=== PATIENT | male | born 1945 | race Caucasian/White ===

== ENCOUNTER 2019-07-05 06:48 | Day surgery (SDC) | payer OTHER ==
[2019-07-04 15:23] LABS: Absolute Lymphocytes (CBC) 2.8 K/uL (0.7-4.9); Basophils % 0.6 % (0-1.3); Lymphocytes % 33.1 % (15.3-44.8); MPV 8.7 fL (7.6-11.3); RBC Red Blood Cell Count 4.54 M/uL (4.33-5.43)
[2019-07-04 15:31] LABS: Protime INR 1.2
--- NOTE | 2019-07-04 15:56 | RAD REPORT ---
EXAM DESCRIPTION: Opal Macias (2 Views)07/04/2019 3:36 pm CLINICAL HISTORY: Preop for cardioversion COMPARISON: 2014 FINDINGS: The lungs appear clear of acute infiltrate. The heart is normal size IMPRESSION: No acute abnormalities displayed
[2019-07-05 07:20] LABS: Potassium 3.8 mmol/L (3.5-5.1)
[2019-07-05] MEDS ORDERED: FLUMAZENIL 0.1 MG/ML (5 mL VIAL) IV ONE (07:33)
[2019-07-05] MEDS ORDERED: MIDAZOLAM HCL 5 MG/5 ML INJ ONE (07:33)
[2019-07-05] MEDS ORDERED: ATROPINE SULF 1 MG/10 ML SYR IV ONE (07:33)
[2019-07-05] MEDS ORDERED: NA CHLORIDE 0.9% 500 ML ONE (07:33)
[2019-07-05 09:44] VITALS: TEMP 97.4
[2019-07-05 10:37] VITALS: BP 96/59; O2SAT 98
--- NOTE | 2019-07-05 11:36 | EKG ---
Test Date: 2019-07-05 Test Time: 08:17:32 [employer] T[employer] Water: PRICE MEASUREMENT RESULTS: Intervals: Rate: 51 RI: 226 QRSD: 86 QT: 518 QTc: 477 [place]: P: 79 RI: 226 QRS: 7 T: 51 INTERPRETIVE STATEMENTS: Sinus bradycardia with 1st degree AV block Otherwise normal ECG Compared to ECG 11/08/2014 06:58:48 First degree AV block now present Atrial flutter no longer present ST (T wave) deviation no longer present Electronically Signed On 07-05-19 11:35:47 CDT by Hiro Stafford
--- NOTE | 2019-07-05 18:26 | OP ---
Surgeon: Hiro Stafford MD Procedure: Mr. Nolasco had a direct current cardioversion. Indication: Atrial flutter, unsuccessful chemical cardioversion. Procedure In Detail: The patient was brought to the [facility] in a fasting state. He had bee n on Betapace 80 b.i.d. for several weeks, Xarelto for several months 20 mg once a day. He was sedat ed with Versed, 5 mg was given adequate level of sedation. Anterior-posterior paddles were applied o n his chest. A single shock of 70 joules was given. This resulted in changing him to sinus bradycar justin. Heart rate 55 beats per minute. Complications from the procedure none. KATEY/ERUM Voice ID: [id number] Report ID: [id number]
== END 2019-07-05 10:33 | disposition home or self-care (01) ==
LOC: CCL 06:48
PROVIDERS: ATTEND Internal Medicine
DX: I48.3 Typical atrial flutter (principal); I10 Essential (primary) hypertension; E78.5 Hyperlipidemia, unspecified; E11.9 Type 2 diabetes mellitus without complications; G81.90 Hemiplegia, unspecified affecting unspecified side; F03.90 Unspecified dementia, unspecified severity, without behavioral disturbance, psychotic disturbance, mood disturbance, and anxiety; M19.90 Unspecified osteoarthritis, unspecified site; F17.210 Nicotine dependence, cigarettes, uncomplicated; Z79.02 Long term (current) use of antithrombotics/antiplatelets; Z86.73 Personal history of transient ischemic attack (TIA), and cerebral infarction without residual deficits
CPT/HCPCS: 93005; 85025; 80048; 36415; 85610; 82962; 85730; 71046; 92960; J2250; J7040

== ENCOUNTER 2020-08-28 10:15 | Observation (INO) | payer OTHER ==
[2020-08-28 10:57] LABS: Absolute Lymphocytes (CBC) 2.5 K/uL (0.7-4.9); Basophils % 0.6 % (0-1.3); Hematocrit 42.3 % (39.6-49.0); Lymphocytes % 28.6 % (15.3-44.8); MPV 8.9 fL (7.6-11.3); RBC Red Blood Cell Count 4.63 M/uL (4.33-5.43)
[2020-08-28 11:08] LABS: Protime INR 1.2
[2020-08-28] MEDS ORDERED: NA CHLORIDE 0.9% 250 ML ONE (11:17)
[2020-08-28 11:19] LABS: ALT/SGPT 45 U/L (12-78); AST/SGOT 40 U/L (15-37); Albumin 3.3 g/dL (3.4-5.0); Alkaline Phosphatase 80 U/L (45-117); BUN Blood Urea Nitrogen 18 mg/dL (7-18); Bicarbonate 33 mmol/L (21-32); Bilirubin Direct 0.1 mg/dL (0-0.2); Bilirubin Total 0.5 mg/dL (0.2-1.0); Glucose Level 176 mg/dL (74-106); Magnesium 1.8 mg/dL (1.8-2.4); NT PRO-BNP 289 pg/mL (<125); Potassium 4.2 mmol/L (3.5-5.1); Protein, Total 7.1 g/dL (6.4-8.2); Sodium Level 143 mmol/L (136-145); Troponin (Emerg Dept Use Only) < 0.02 ng/mL (0.0-0.045)
--- NOTE | 2020-08-28 11:50 | RAD REPORT ---
EXAM DESCRIPTION: RAD - Chest Single View - 08/28/2020 10:52 am CLINICAL HISTORY: DYSPNEA, tachycardia COMPARISON: June 2019 TECHNIQUE: AP portable chest image was obtained 08/28/2020 10:52 am . FINDINGS: No focal lung parenchymal process. Interstitial pattern matches comparison. No failure or volume overload. Heart and vasculature are normal. No measurable pleural effusion and no pneumothorax . No acute bony abnormality seen. No acute aortic findings suspected. IMPRESSION: No acute cardiopulmonary process. No significant change from comparison study.
--- NOTE | 2020-08-28 12:02 | ER ---
Nurse's Notes [facility] Name: Dwight Nolasco Age: 75 yrs Sex: Male : 1945 Arrival Date: 08/28/2020 Time: 10:17 Bed 27 Private MD: Diagnosis: Atrial fibrillation and flutter-w/ RVR Presentation: 08/28 10:23 Chief complaint: Sent here by Dr. Sena (Cnc Lathe Programmer) for elevated heart rate. Spoke aa5 to nurse at [facility] where pt lives and nurse states pt tested positive for COVID-19 in May 2020, nurse denies nausea/vomiting/diarrhea. Nurse reports chronic cough and reports pt's baseline is unclear speech and A\T\O x 2. 10:23 Coronavirus screen: At this time, the client does not indicate any symptoms associated aa5 with coronavirus-19. Ebola Screen: Patient negative for fever greater than or equal to 101.5 degrees Fahrenheit, and additional compatible Ebola Virus Disease symptoms. Initial Sepsis Screen: Does the patient meet any 2 criteria? HR > 90 bpm. Does the patient have a suspected source of infection? No. Patient's initial sepsis screen is negative. Risk Assessment: Do you want to hurt yourself or someone else? Unable to obtain. Onset of symptoms was August 28, 2020. 10:23 Acuity: BEVERLY 2 aa5 10:23 Method Of Arrival: Wheelchair aa5 Triage Assessment: 10:30 General: Appears in no apparent distress. comfortable, Behavior is calm, cooperative, bp appropriate for age. Pain: Denies pain. EENT: No deficits noted. Neuro: No deficits noted. Cardiovascular: Rhythm is sinus tachycardia. Respiratory: No deficits noted. GI: No signs and/or symptoms were reported involving the gastrointestinal system. : No signs and/or symptoms were reported regarding the genitourinary system. Derm: No deficits noted. Musculoskeletal: No deficits noted. Historical: - Allergies: 10:23 No Known Allergies; aa5 - Home Meds: 12:17 amlodipine 5 mg tab 1 tab once daily [Active]; atorvastatin 80 mg oral tab 1 tab once aa5 daily [Active]; Betapace 40mg oral tab 2 times per day [Active]; Depakote 125 mg Oral TbEC 2 tabs 3 times per day [Active]; duloxetine 20 mg oral cpDR daily [Active]; fenofibrate 54 mg oral tab once daily [Active]; furosemide 40 mg oral tab once daily [Active]; gabapentin 800 mg oral tab 1 tab 3 times per day [Active]; glimepiride 2 mg Oral tab 1 tab once daily [Active]; guaifenesin 100 mg/5 mL Oral liqd evry 8 hrs PRN for cough [Active]; hydrocodone-acetaminophen 5-325 mg oral tab BID [Active]; lisinopril 20 mg Oral tab once daily [Active]; metformin 850 mg Oral tab 1 tab 2 times per day [Active]; Milk of Magnesia 400 mg/5 mL Oral susp 30 mL every 6hrs PRN for constipation [Active]; multivitamin oral oral [Active]; Nitrostat 0.4 mg SL subl [Active]; Xarelto 20 mg oral tab 1 tab once daily [Active]; - PMHx: 10:23 Type 2 Diabetes; Atrial Flutter; Hyperlipidemia; Hypertension; Depression; Dementia; aa5 dysphagia; CVA; osteoarthritis; Cognitive Communication Deficit; - Immunization history:: Adult Immunizations unknown. - Social history:: Smoking status: Patient reports the use of cigarette tobacco products, cigars. Screenin:30 Abuse screen: Denies threats or abuse. Denies injuries from another. Nutritional bp screening: No deficits noted. Tuberculosis screening: No symptoms or risk factors identified. Fall Risk None identified. Assessment: 10:30 General: SEE TRIAGE NOTE. bp 11:30 Reassessment: Patient appears in no apparent distress at this time. No changes from bp previously documented assessment. PT SLEEPING. 12:00 Reassessment: PT REMAINS AFIB/AFLUTTER. MENTATION AT BASELINE. bp 14:00 Reassessment: ADMIT INITIATED. AMIODARONE DRIP INFUSING. bp 16:30 General: Appears in no apparent distress. comfortable, Behavior is calm, cooperative. jd3 Pain: Denies pain. Neuro: Level of Consciousness is awake, alert, obeys commands, confused, Oriented to person, pt at baseline. Cardiovascular: Capillary refill < 3 seconds Patient's skin is warm and dry. Rhythm is irregular. Respiratory: Airway is patent Respiratory effort is even, unlabored, Respiratory pattern is regular, symmetrical, Denies cough, shortness of breath. GI: No signs and/or symptoms were reported involving the gastrointestinal system. : No signs and/or symptoms were reported regarding the genitourinary system. EENT: No signs and/or symptoms were reported regarding the EENT system. Derm: Skin is intact, Skin is dry, Skin is normal, Skin temperature is warm. Musculoskeletal: Circulation, motion, and sensation intact. Range of motion: intact in all extremities. 17:47 Reassessment: Patient appears in no apparent distress at this time. No changes from jd3 previously documented assessment. Patient and/or family updated on plan of care and expected duration. Pain level reassessed. Patient denies pain at this time. 18:46 Reassessment: Patient appears in no apparent distress at this time. No changes from jd3 previously documented assessment. Patient and/or family updated on plan of care and expected duration. Pain level reassessed. awaiting admission Patient denies pain at this time. 20:17 Reassessment: Patient appears in no apparent distress at this time. No changes from jd3 previously documented assessment. Patient and/or family updated on plan of care and expected duration. Pain level reassessed. Patient denies pain at this time. 21:10 Reassessment: Patient appears in no apparent distress at this time. No changes from jd3 previously documented assessment. Patient and/or family updated on plan of care and expected duration. Pain level reassessed. charting continued in [facility] Patient denies pain at this time. Pain: Denies pain. Neuro: Level of Consciousness is awake, alert, obeys commands, confused, Oriented to person. Cardiovascular: Denies chest pain, Capillary refill < 3 seconds Patient's skin is warm and dry. Rhythm is irregular. Respiratory: Airway is patent Respiratory effort is even, unlabored, Respiratory pattern is regular, symmetrical. 22:13 Reassessment: Tele pharmacy on phone to verify Lovenox ordered as 100 mg, pt weight of sg 87, pharmacy request primary nurse notify provider prior to authorization of dose per telepharmacy, Primary nurse Vanesa DENNIS notified pt is a ER hold. Vital Signs: 10:23 BP 115 / 89; Pulse 130; Resp 18 S; Temp 98.3(O); Pulse Ox 98% on R/A; aa5 11:30 BP 113 / 82; Pulse 130; Resp 18; Pulse Ox 94% ; bp 12:00 BP 122 / 95; Pulse 126; Resp 19; Pulse Ox 97% ; bp 13:00 BP 132 / 88; Pulse 122; Resp 21; Pulse Ox 96% ; bp 14:00 BP 132 / 100; Pulse 122; Resp 19; Pulse Ox 98% ; bp 14:55 Weight 87.09 kg; Height 6 ft. 0 in. (182.88 cm); em1 15:00 BP 128 / 93; Pulse 120; Resp 18; Pulse Ox 97% ; bp 16:29 BP 116 / 88; Pulse 106; Resp 17 S; Pulse Ox 96% on R/A; jd3 17:47 BP 127 / 93; Pulse 120; Resp 15 S; Pulse Ox 96% on R/A; jd3 18:47 BP 115 / 85; Pulse 114; Resp 19 S; Pulse Ox 95% on R/A; jd3 20:18 BP 116 / 80; Pulse 117; Resp 17 S; Pulse Ox 97% on R/A; jd3 14:55 Body Mass Index 26.04 (87.09 kg, 182.88 cm) em1 ED Course: 10:17 Patient arrived in ED. ag5 10:23 Arm band placed on Patient placed in an exam room, on a stretcher. aa5 10:27 George Raymond, RN is Primary Nurse. bp 10:30 Patient has correct armband on for positive identification. Bed in low position. Call bp light in reach. Side rails up X2. 10:32 Igor Hernandez MD is Attending Physician. kdr 10:45 Inserted saline lock: 20 gauge in right antecubital area, using aseptic technique. bp 10:46 Triage completed. aa5 10:51 XRAY Chest (1 view) In Process Unspecified. EDMS 12:00 Jeanne Gaytan MD is Hospitalizing Provider. kdr 14:00 Urine collected: clean catch specimen, clear. jl7 16:29 Primary Nurse role handed off by George Raymond, SONNY jd3 16:29 Andrew Dunlap RN is Primary Nurse. jd3 21:09 No provider procedures requiring assistance completed. Patient admitted, IV remains in jd3 place. Administered Medications: 11:06 Drug: NS 0.9% 250 ml Route: IV; Rate: bolus; Site: left antecubital; aa5 13:40 Follow up: IV Status: Completed infusion; IV Intake: 250ml bp 12:10 Drug: amiodarone 150 mg Volume: 100 ml; Route: IVPB; Infused Over: 10 mins; Site: left bp antecubital; 12:20 Follow up: IV Status: Completed infusion; IV Intake: 100ml bp 12:10 Drug: amiodarone 900 mg, D5W 500 ml Route: IVPB; Rate: 1 mg/min; Site: left antecubital;bp 18:10 Follow up: Response: No adverse reaction; Rate change 0.5 mg/min jd3 19:00 Follow up: Response: No adverse reaction; IV Status: Infusion continued upon admission jd3 Intake: 12:20 IV: 100ml; Total: 100ml. bp 13:40 IV: 250ml; Total: 350ml. bp Outcome: 12:01 Decision to Hospitalize by Provider. kdr 21:09 Admitted to ER Hold. Please see [facility] for further documentation. jd3 21:09 Condition: stable 21:09 Instructed on the need for admit. 08/29 17:57 Patient left the ED. iw Signatures: Dispatcher [employer] EDGiorgi Hwang, RN Igor Wright MD MD kdr Shwetha Huerta, RN Familia Martellic em1 Susy Walker RN RN vy5 Dana Campos RN RN [email or web address] Andrew Dunlap RN RN jd3 Peltier, Brian, RN RN Roberth Santana ag5
--- NOTE | 2020-08-28 12:02 | EDPHYS ---
Physician Documentation [facility] Name: Dwight Nolasco Age: 75 yrs Sex: Male : 1945 Arrival Date: 08/28/2020 Time: 10:17 Bed 27 Private MD: ED Physician Igor Hernandez HPI: 08/28 17:19 This 75 yrs old Male presents to ER via Wheelchair with complaints of kdr Increased Heart Rate. 17:19 The patient presents with a history of irregular heart beat. Context: The symptoms kdr occur at rest. Onset: The symptoms/episode began/occurred at an unknown time. Duration: The patient or guardian reports multiple episodes, that are intermittent, that wax and wane, with no pattern. Modifying factors: The symptoms are aggravated by nothing. The symptoms are alleviated by nothing. Associated signs and symptoms: The patient has no apparent associated signs or symptoms. Severity of symptoms: At their worst the symptoms were mild in the emergency department the symptoms are unchanged. It is unknown whether or not the patient has had similar symptoms in the past. The patient was sent from the button clamper office for eval of A-fib RVR in his office. It is not known why he was in the button clamper office as the patient is baseline A\T\Ox 2. Historical: - Allergies: 10:23 No Known Allergies; aa5 - Home Meds: 12:17 amlodipine 5 mg tab 1 tab once daily [Active]; atorvastatin 80 mg oral tab 1 tab once aa5 daily [Active]; Betapace 40mg oral tab 2 times per day [Active]; Depakote 125 mg Oral TbEC 2 tabs 3 times per day [Active]; duloxetine 20 mg oral cpDR daily [Active]; fenofibrate 54 mg oral tab once daily [Active]; furosemide 40 mg oral tab once daily [Active]; gabapentin 800 mg oral tab 1 tab 3 times per day [Active]; glimepiride 2 mg Oral tab 1 tab once daily [Active]; guaifenesin 100 mg/5 mL Oral liqd evry 8 hrs PRN for cough [Active]; hydrocodone-acetaminophen 5-325 mg oral tab BID [Active]; lisinopril 20 mg Oral tab once daily [Active]; metformin 850 mg Oral tab 1 tab 2 times per day [Active]; Milk of Magnesia 400 mg/5 mL Oral susp 30 mL every 6hrs PRN for constipation [Active]; multivitamin oral oral [Active]; Nitrostat 0.4 mg SL subl [Active]; Xarelto 20 mg oral tab 1 tab once daily [Active]; - PMHx: 10:23 Type 2 Diabetes; Atrial Flutter; Hyperlipidemia; Hypertension; Depression; Dementia; aa5 dysphagia; CVA; osteoarthritis; Cognitive Communication Deficit; - Immunization history:: Adult Immunizations unknown. - Social history:: Smoking status: Patient reports the use of cigarette tobacco products, cigars. ROS: 17:19 Constitutional: Negative for fever, chills, and weight loss, Eyes: Negative for injury, kdr pain, redness, and discharge, Neck: Negative for injury, pain, and swelling, Cardiovascular: Negative for chest pain, palpitations, and edema, Respiratory: Negative for shortness of breath, cough, wheezing, and pleuritic chest pain, Abdomen/GI: Negative for abdominal pain, nausea, vomiting, diarrhea, and constipation. 17:19 Unable to obtain ROS due to patient's speech is incomprehensible, Patient appears to have some baseline dementia or is otherwise a poor historian. Exam: 14:19 ECG was reviewed by the Attending Physician. kdr 17:19 Constitutional: This is a well developed, well nourished patient who is awake, alert, kdr and in no acute distress. Head/Face: Normocephalic, atraumatic. Eyes: Pupils equal round and reactive to light, extra-ocular motions intact. Lids and lashes normal. Conjunctiva and sclera are non-icteric and not injected. Cornea within normal limits. Periorbital areas with no swelling, redness, or edema. Neck: Trachea midline, no thyromegaly or masses palpated, and no cervical lymphadenopathy. Supple, full range of motion without nuchal rigidity, or vertebral point tenderness. No Meningismus. Chest/axilla: Normal chest wall appearance and motion. Nontender with no deformity. No lesions are appreciated. Respiratory: Lungs have equal breath sounds bilaterally, clear to auscultation and percussion. No rales, rhonchi or wheezes noted. No increased work of breathing, no retractions or nasal flaring. Abdomen/GI: Soft, non-tender, with normal bowel sounds. No distension or tympany. No guarding or rebound. No evidence of tenderness throughout. Back: No spinal tenderness. No costovertebral tenderness. Full range of motion. Skin: Warm, dry with normal turgor. Normal color with no rashes, no lesions, and no evidence of cellulitis. MS/ Extremity: Pulses equal, no cyanosis. Neurovascular intact. Full, normal range of motion. 17:19 Psych: Awake, alert, with orientation to person, place and time. Behavior, mood, and affect are within normal limits. 17:19 Cardiovascular: Rate: tachycardic, Rhythm: irregularly irregular, Pulses: no pulse deficits are appreciated, Heart sounds: normal, Edema: is not appreciated. 17:19 Neuro: Orientation: to person, place, Not oriented to time, situation, Mentation: slow to respond, Motor: is normal. Vital Signs: 10:23 BP 115 / 89; Pulse 130; Resp 18 S; Temp 98.3(O); Pulse Ox 98% on R/A; aa5 11:30 BP 113 / 82; Pulse 130; Resp 18; Pulse Ox 94% ; bp 12:00 BP 122 / 95; Pulse 126; Resp 19; Pulse Ox 97% ; bp 13:00 BP 132 / 88; Pulse 122; Resp 21; Pulse Ox 96% ; bp 14:00 BP 132 / 100; Pulse 122; Resp 19; Pulse Ox 98% ; bp 14:55 Weight 87.09 kg; Height 6 ft. 0 in. (182.88 cm); em1 15:00 BP 128 / 93; Pulse 120; Resp 18; Pulse Ox 97% ; bp 16:29 BP 116 / 88; Pulse 106; Resp 17 S; Pulse Ox 96% on R/A; jd3 17:47 BP 127 / 93; Pulse 120; Resp 15 S; Pulse Ox 96% on R/A; jd3 18:47 BP 115 / 85; Pulse 114; Resp 19 S; Pulse Ox 95% on R/A; jd3 20:18 BP 116 / 80; Pulse 117; Resp 17 S; Pulse Ox 97% on R/A; jd3 14:55 Body Mass Index 26.04 (87.09 kg, 182.88 cm) em1 MDM: 12:01 Patient medically screened. kdr 17:24 Data reviewed: vital signs, nurses notes, lab test result(s), radiologic studies. kdr Counseling: I had a detailed discussion with the patient and/or guardian regarding: the historical points, exam findings, and any diagnostic results supporting the discharge/admit diagnosis, lab results, radiology results. Physician consultation: Jermaine Sena MD regarding admission, consult, patient's condition, would like medications started, amiodarone . 08/28 10:32 Order name: Basic Metabolic Panel; Complete Time: 11:54 kdr 08/28 10:32 Order name: CBC with Diff; Complete Time: 11:54 kdr 08/28 10:32 Order name: LFT's; Complete Time: 11:54 kdr 08/28 10:32 Order name: Magnesium; Complete Time: 11:54 kdr 08/28 10:32 Order name: NT PRO-BNP; Complete Time: 11:54 kdr 08/28 10:32 Order name: PT-INR; Complete Time: 11:54 kdr 08/28 10:32 Order name: Troponin (emerg Dept Use Only); Complete Time: 11:54 kdr 08/28 12:35 Order name: CBC with Automated Diff EDMS 08/28 12:35 Order name: CBC with Automated Diff EDMS 08/28 12:35 Order name: Comprehensive Metabolic Panel EDNM 08/28 12:35 Order name: Comprehensive Metabolic Panel EDMS 08/28 12:35 Order name: Magnesium EDMS 08/28 12:35 Order name: Magnesium EDMS 08/28 12:35 Order name: NT PRO-BNP EDMS 08/28 12:35 Order name: NT PRO-BNP EDMS 08/28 12:35 Order name: Phosphorus EDMS 08/28 12:35 Order name: Phosphorus EDMS 08/28 12:35 Order name: Protime (+INR) EDMS 08/28 12:35 Order name: Protime (+INR) EDMS 08/28 12:35 Order name: PTT, Activated Partial Thromb EDMS 08/28 12:35 Order name: PTT, Activated Partial Thromb EDMS 08/28 12:35 Order name: Troponin I EDNM 08/28 12:35 Order name: Troponin I; Complete Time: 19:26 EDMS 08/28 12:35 Order name: Troponin I EDMS 08/28 13:56 Order name: Urine Dipstick--Ancillary (enter results) em1 08/28 14:37 Order name: Urine Dipstick-Ancillary; Complete Time: 19:26 EDMS 08/29 09:06 Order name: T4 Free EDNM 08/29 09:06 Order name: Thyroid Stimulating Hormone EDNM 08/29 12:48 Order name: CORONAVIRUS EDNM 08/29 13:34 Order name: SARS-COV-2 RT PCR EDNM 08/28 10:32 Order name: XRAY Chest (1 view); Complete Time: 11:54 kdr 08/28 10:32 Order name: EKG; Complete Time: 10:33 kdr 08/28 10:32 Order name: Cardiac monitoring; Complete Time: 10:57 kdr 08/28 10:32 Order name: EKG - Nurse/Tech; Complete Time: 10:57 kdr 08/28 10:32 Order name: IV Saline Lock; Complete Time: 11:08 kdr 08/28 10:32 Order name: Labs collected and sent; Complete Time: 11:08 kdr 08/28 10:32 Order name: O2 Per Protocol; Complete Time: 11:07 kdr 08/28 10:32 Order name: O2 Sat Monitoring; Complete Time: 11:07 kdr 08/28 12:35 Order name: CONS Physician Consult EDNM 08/28 12:35 Order name: Heart Healthy EDNM 08/28 12:35 Order name: Echo with Doppler EDNM 08/28 12:35 Order name: Echo with Doppler EDNM 08/28 12:35 Order name: EKG Electrocardiogram EDNM 08/28 12:35 Order name: EKG Electrocardiogram EDNM EC:19 Rate is 130 beats/min. Rhythm is regular, A flutter with No ectopy. QRS [place] is Normal. kdr [place] interval is normal. QRS interval is normal. QT interval is normal. Clinical impression: Atrial Flutter. Administered Medications: 11:06 Drug: NS 0.9% 250 ml Route: IV; Rate: bolus; Site: left antecubital; aa5 13:40 Follow up: IV Status: Completed infusion; IV Intake: 250ml bp 12:10 Drug: amiodarone 150 mg Volume: 100 ml; Route: IVPB; Infused Over: 10 mins; Site: left bp antecubital; 12:20 Follow up: IV Status: Completed infusion; IV Intake: 100ml bp 12:10 Drug: amiodarone 900 mg, D5W 500 ml Route: IVPB; Rate: 1 mg/min; Site: left antecubital;bp 18:10 Follow up: Response: No adverse reaction; Rate change 0.5 mg/min jd3 19:00 Follow up: Response: No adverse reaction; IV Status: Infusion continued upon admission jd3 Disposition: 08/28/20 12:01 Hospitalization ordered by Jeanne Gaytan for Inpatient Admission. Preliminary diagnosis is Atrial fibrillation and flutter - w/ RVR. - Bed requested for [facility] ER HOLD. - Status is Inpatient Admission. iw - Condition is Fair. - Problem is an acute exacerbation. - Symptoms are unchanged. Signatures: Dispatcher [employer] EDMS Igor Hernandez MD MD [facility] Shwetha Huerta RN RN iw Susy Walker RN RN aa5 Ayaan Keith PA PA [facility] George Raymond, RN RN Nisa Dixon RN RN ca1 Andrew Dunlap RN jd3 Corrections: (The following items were deleted from the chart) 20:09 12:01 Hospitalization Ordered by Jeanne Gaytan MD for Inpatient Admission. Preliminary ca1 diagnosis is Atrial fibrillation and flutter - w/ RVR. Bed requested for Telemetry/MedSurg (Inpatient). Status is Inpatient Admission. Condition is Fair. Problem is an acute exacerbation. Symptoms are unchanged. kdr 08/29 17:57 08/28 20:09 08/28/2020 12:01 Hospitalization Ordered by Jeanne Gaytan MD for Inpatient iw Admission. Preliminary diagnosis is Atrial fibrillation and flutter - w/ RVR. Bed requested for [facility] ER HOLD. Status is Inpatient Admission. Condition is Fair. Problem is an acute exacerbation. Symptoms are unchanged. ca1
[2020-08-28] MEDS ORDERED: ONDANSETRON 4 MG/2 ML VIAL IV PRN (12:22)
[2020-08-28] MEDS ORDERED: AMIODARONE HCL 450 MG in D5W 241 ML IV SCH (13:00)
[2020-08-28] MEDS ORDERED: NACHLORIDE 0.45% 1,000 ML IV SCH (13:00)
[2020-08-28] MEDS ORDERED: AMIODARONE HCL 150 MG in D5W 100 ML IV SCH (13:00)
[2020-08-28] MEDS ORDERED: D5W 100 ML IV ONE (13:05)
[2020-08-28] MEDS ORDERED: AMIODARONE HCL 150 MG/3 ML INJ IV ONE (13:05)
[2020-08-28 14:37] LABS: Urine Blood NEGATIVE (NEG); Urine Glucose NEGATIVE (NEG); Urine Protein NEGATIVE (NEG); Urine Specific Gravity 1.015 (1.005-1.030)
[2020-08-28] MEDS: AMIODARONE HCL 200 MG TAB PO SCH ×2 (20:20→21:00)
[2020-08-28] MEDS ORDERED: AMIODARONE HCL 200 MG TAB ONE (20:59)
[2020-08-28] MEDS ORDERED: ENOXAPARIN 100 MG/ML SYR SQ SCH (21:00)
[2020-08-28 21:05] VITALS: BMI 26.0
[2020-08-29 06:11] LABS: Protime INR 1.03
[2020-08-29 06:14] LABS: Absolute Lymphocytes (CBC) 2.2 K/uL (0.7-4.9); Basophils % 0.6 % (0-1.3); Lymphocytes % 28.8 % (15.3-44.8); MPV 9.3 fL (7.6-11.3); RBC Red Blood Cell Count 4.63 M/uL (4.33-5.43)
[2020-08-29 06:35] LABS: Albumin 3.1 g/dL (3.4-5.0); Bilirubin Total 0.5 mg/dL (0.2-1.0); Magnesium 1.8 mg/dL (1.8-2.4); Potassium 3.7 mmol/L (3.5-5.1); Protein, Total 6.5 g/dL (6.4-8.2)
[2020-08-29] MEDS ORDERED: MAGNESIUM SULFATE 1 gm IVPB 1 GM/100 ML BAG IV ONE ×2 (07:02→10:28)
[2020-08-29] MEDS ORDERED: POTASSIUM 25 MEQ EFFERV TAB PO ONE (07:03)
--- NOTE | 2020-08-29 07:55 | ECHO ---
HEIGHT: 6 ft 0 in WEIGHT: 192 lb 0.009 oz DATE OF STUDY: 08/28/[address]: Jeanne Gaytan MD 2-DIMENSIONAL: YES M.MODE: YES DOPPLER: YES COLOR FLOW: YES TDS: PORTABLE: DEFINITY: BUBBLE STUDY: DIAGNOSIS: ATRIAL FIBRILLATION CARDIAC HISTORY: CATHERIZATION: NO SURGERY: NO PROSTHETIC VALVE: NO PACEMAKER: NO MEASUREMENTS (cm) DIASTOLIC (NORMALS) SYSTOLIC (NORMALS) IVSd 1.1 (0.6-1.2) LA Diam 3.4 (1.9-4.0) LVEF 58% LVIDd 3.0 (3.5-5.7) LVIDs 2.1 (2.0-3.5) %FS 29% LVPWd 1.1 (0.6-1.2) Ao Diam 2.9 (2.0-3.7) 2 DIMENSIONAL ASSESSMENT: RIGHT ATRIUM: NORMAL LEFT ATRIUM: NORMAL RIGHT VENTRICLE: NORMAL LEFT VENTRICLE: NORMAL TRICUSPID VALVE: NORMAL MITRAL VALVE: NORMAL PULMONIC VALVE: NORMAL AORTIC VALVE: NORMAL PERICARDIAL EFFUSION: NONE AORTIC ROOT: NORMAL LEFT VENTRICULAR WALL MOTION: NORMAL DOPPLER/COLOR FLOW: NORMAL COMMENTS: NORMAL LEFT VENTRICULAR EJECTION FRACTION 55-60% WITH NORMAL WALL MOTION. TECHNOLOGIST: MERON VIDES
[2020-08-29] MEDS ORDERED: NA CHLORIDE 0.9% 500 ML IV ONE (08:30)
[2020-08-29] MEDS ORDERED: METOPROLOL TAR 25 MG TAB PO ONE (08:31)
[2020-08-29] MEDS ORDERED: MAGNESIUM HYDROXIDE 8% 30 ML PO PRN (08:39)
[2020-08-29] MEDS ORDERED: guaiFENesin 100 MG/5 ML UCUP PO PRN (08:39)
--- NOTE | 2020-08-29 08:50 | P.HP ---
Certification for Inpatient Patient admitted to: Observation With expected LOS: <2 Midnights Patient will require the following post-hospital care: None Practitioner: I am a practitioner with admitting privileges, knowledge of patient current condition, hospital course, and medical plan of care. Services: Services provided to patient in accordance with Admission requirements found in Title 42 Section 412.3 of the Code of Federal Regulations Patient History Date of Service: 08/28/20 Reason for admission: Tachyarrhythmia/atrial fibrillation with rapid ventricular response History of Present Illness: Patient is a 75-year-old gentleman who came to the hospital with tachyarrhythmia. Patient was seen at the cardiology office. Patient is a resident at [facility]. Patient has been worked up in the past. Patient was started on amiodarone drip in the emergency room. Patient has converted into sinus tachyarrhythmia. Spoke with Cardiology and will change the antiarrhythmic to amiodarone 200 mg p.o. b.i.d. patient will get an echocardiogram. Patient has been on sotalol. Spoke with Cardiology and will change this to amiodarone. Patient is on Xarelto as well. Allergies No Known Allergies Allergy (Verified 11/07/14 20:31) Home Medications: Hydrocodone Bit/Acetaminophen [Hydrocodon-Acetaminophen 5-325] 1 tab PO BID 07/23/14 Metformin HCl 1 tab PO BID 07/23/14 Fenofibrate [Lofibra] 54 mg PO DAILY 11/07/14 Furosemide [Lasix] 40 mg PO DAILY 07/04/19 Atorvastatin Calcium [Lipitor] 80 mg PO BEDTIME 08/28/20 Divalproex [Depakote Sprinkle*] 250 mg PO TID 08/28/20 Duloxetine HCl 20 mg PO DAILY 08/28/20 Gabapentin [Neurontin] 800 mg PO TID 08/28/20 Glimepiride [Amaryl] 1 mg PO DAILY 08/28/20 Lisinopril [Zestril] 20 mg PO DAILY 08/28/20 Magnesium Hydroxide [Milk of Magnesia] 30 ml PO Q6HP PRN 08/28/20 Multivitamin [Daily Multiple Vitamin] 1 tab PO DAILY 08/28/20 Nitroglycerin [Nitrostat*] 1 tab SL SEECOM 08/28/20 Rivaroxaban [Xarelto] 20 mg PO DAILY 08/28/20 Sotalol HCl [Betapace*] 80 mg PO BID 08/28/20 guaiFENesin [Scot-Tussin Expectorant] 100 mg PO Q8HP PRN 08/28/20 - Past Medical/Surgical History Has patient received pneumonia vaccine in the past: Yes Diabetic: Yes -: HTN -: CVA -: Dementia -: neuropathy -: aflutter -: osteoarthritis -: type 2 dm -: hyperlipidemia -: depression -: covid -: hemiplegia rue - Family History Father Family History: Reviewed- Non-Contributory - Social History Smoking Status: Unknown if ever smoked Alcohol use: No CD- Drugs: No Caffeine use: Yes Place of Residence: [facility] Review of Systems 10-point ROS is otherwise unremarkable Physical Examination - Vital Signs Temperature: 98.4 F Blood Pressure: 130/87 Pulse: 123 Respirations: 18 Pulse Ox (%): 97 - Physical Exam General: Alert, In no apparent distress, Demented, Confused HEENT: Atraumatic, PERRLA, Mucous membr. moist/pink, EOMI, Sclerae nonicteric Neck: Supple, 2+ carotid pulse no bruit, No LAD, Without JVD or thyroid abnormality Respiratory: Clear to auscultation bilaterally, Normal air movement Cardiovascular: Other (Tachyarrhythmia) Gastrointestinal: Normal bowel sounds, Soft and benign, Non-distended, No tenderness Musculoskeletal: No clubbing, No swelling, No tenderness Integumentary: No rashes Neurological: Normal gait, Normal speech, Normal strength at 5/5 x4 extr, Normal tone, Sensation intact, Cranial nerves 3-12 intact, Normal affect Lymphatics: No axilla or inguinal lymphadenopathy - Studies Laboratory Data (last 24 hrs) 08/28/20 10:42: PT 14.1 H, INR 1.20 08/28/20 10:42: WBC 8.8, Hgb 13.9, Hct 42.3, Plt Count 277 08/28/20 10:42: Sodium 143, Potassium 4.2, BUN 18, Creatinine 1.25, Glucose 176 H, Magnesium 1.8, Total Bilirubin 0.5, AST 40 H, ALT 45, Alkaline Phosphatase 80 Assessment & Plan - Problems (Diagnosis) (1) Atrial fibrillation with rapid ventricular response Onset Date: 11/11/14 Current Visit: No Status: Acute (2) Diabetes mellitus Onset Date: 11/11/14 Current Visit: No Status: Acute (3) Tachycardia Onset Date: 07/23/14 Current Visit: No Status: Acute - Plan Plan: 1. Continue with anti coagulation 2. Continue with amiodarone 200 b.i.d. 3. Dc sotalol 4. Continue anti coagulation 5. Hydration 6. Recheck thyroid studies 7. Repeat echocardiogram 8. GI and DVT prophylaxis Discharge Plan: Home Plan to discharge in: 24 Hours - Advance Directives Does patient have a Living Will: No Does patient have a Durable POA for Healthcare: No - Code Status/Comfort Care Code Status Assessed: Yes Code Status: Full Code Critical Care: No Time Spent Managing PTS Care (In Minutes): 45
--- NOTE | 2020-08-29 08:55 | P.DS ---
Discharge Date: 08/29/20 Disposition: TRANSFER TO SENIOR CARE Discharge Condition: GOOD Reason for Admission: Tachyarrhythmia/atrial fibrillation with rapid ventricular response Consultations: Cardiology - Problems (1) Atrial fibrillation with rapid ventricular response Onset Date: 11/11/14 Status: Acute (2) Diabetes mellitus Onset Date: 11/11/14 Status: Acute (3) Tachycardia Onset Date: 07/23/14 Status: Acute Brief History of Present Illness: Patient is a 75-year-old gentleman who came to the hospital with tachyarrhythmia. Patient was seen at the cardiology office. Patient is a resident at [facility]. Patient has been worked up in the past. Patient was started on amiodarone drip in the emergency room. Patient has converted into sinus tachyarrhythmia. Spoke with Cardiology and will change the antiarrhythmic to amiodarone 200 mg p.o. b.i.d. patient will get an echocardiogram. Patient has been on sotalol. Spoke with Cardiology and will change this to amiodarone. Patient is on Xarelto as well. Hospital Course: Patient has done well during hospital stay. Patient has a history of tachyarrhythmia. Patient was started on home medications including Pacerone. Patient's heart rate is stable. At this time, patient is stable for discharge back to the alf. Return to the emergency room if symptoms worsen. Vital Signs/Physical Exam: Temp Pulse Resp BP Pulse Ox 98.4 F 123 H 18 130/87 97 08/29/20 08:50 08/29/20 08:50 08/29/20 08:50 08/29/20 08:50 08/29/20 08:50 General: Alert, In no apparent distress, Oriented x3 Laboratory Data at Discharge: WBC 7.7 K/uL (4.3-10.9) 08/29/20 05:33 Hgb 14.0 g/dL (13.6-17.9) 08/29/20 05:33 Hct 42.0 % (39.6-49.0) 08/29/20 05:33 Plt Count 239 K/uL (152-406) 08/29/20 05:33 PT 12.1 SECONDS (9.5-12.5) 08/29/20 05:33 INR 1.03 08/29/20 05:33 APTT 29.2 SECONDS (24.3-36.9) 08/29/20 05:33 Sodium 144 mmol/L (136-145) 08/29/20 05:33 Potassium 3.7 mmol/L (3.5-5.1) 08/29/20 05:33 BUN 16 mg/dL (7-18) 08/29/20 05:33 Creatinine 1.06 mg/dL (0.55-1.3) 08/29/20 05:33 Glucose 85 mg/dL (74-106) 08/29/20 05:33 Phosphorus 3.0 mg/dL (2.5-4.9) 08/29/20 05:33 Magnesium 1.8 mg/dL (1.8-2.4) 08/29/20 05:33 Total Bilirubin 0.5 mg/dL (0.2-1.0) 08/29/20 05:33 AST 32 U/L (15-37) 08/29/20 05:33 ALT 40 U/L (12-78) 08/29/20 05:33 Alkaline Phosphatase 78 U/L (45-117) 08/29/20 05:33 Troponin I < 0.02 ng/mL (0.0-0.045) 08/29/20 00:44 Home Medications: Hydrocodone Bit/Acetaminophen [Hydrocodon-Acetaminophen 5-325] 1 tab PO BID 07/23/14 Metformin HCl 1 tab PO BID 07/23/14 Fenofibrate [Lofibra] 54 mg PO DAILY 11/07/14 Furosemide [Lasix] 40 mg PO DAILY 07/04/19 Atorvastatin Calcium [Lipitor] 80 mg PO BEDTIME 08/28/20 Divalproex [Depakote Sprinkle*] 250 mg PO TID 08/28/20 Duloxetine HCl 20 mg PO DAILY 08/28/20 Gabapentin [Neurontin] 800 mg PO TID 08/28/20 Glimepiride [Amaryl] 1 mg PO DAILY 08/28/20 Magnesium Hydroxide [Milk of Magnesia] 30 ml PO Q6HP PRN 08/28/20 Multivitamin [Daily Multiple Vitamin] 1 tab PO DAILY 08/28/20 Nitroglycerin [Nitrostat*] 1 tab SL SEECOM 08/28/20 Rivaroxaban [Xarelto] 20 mg PO DAILY 08/28/20 guaiFENesin [Scot-Tupatiin Expectorant] 100 mg PO Q8HP PRN 08/28/20 Amiodarone HCl [Pacerone] 400 mg PO BID #60 tablet 08/29/20 Amlodipine [Norvasc*] 10 mg PO DAILY #30 tab 08/29/20 New Medications: Amlodipine [Norvasc*] 10 mg PO DAILY #30 tab Amiodarone HCl [Pacerone] 400 mg PO BID #60 tablet Patient Discharge Instructions: OK TO SC IV AND DC TO [facility]. FOLLOW-UP WITH PRIMARY CARE PROVIDER IN 1-2 WEEKS. FOLLOW-UP WITH CARDIOLOGY IN 1-2 WEEKS. RETURN TO THE ER IF SYMPTOMS WORSEN. CALL or TEXT DR. FLORES AT [phone] IF ANY QUESTIONS REGARDING HOSPITAL STAY. PLEASE CALL THE FLOOR AT [phone] IF ANY MEDICATION OR NURSING QUESTIONS. Diet: AHA Activity: Fall precautions Followup: Unknown,U [Primary Care Provider] - Time spent managing pt's care (in minutes): 35
[2020-08-29] MEDS ORDERED: DULOXETINE 20 MG CAP PO SCH (09:00)
[2020-08-29] MEDS ORDERED: AMLODIPINE 10 MG TAB PO SCH (09:00)
[2020-08-29] MEDS ORDERED: ASPIRIN EC 81 MG TAB PO SCH (09:00)
[2020-08-29] MEDS ORDERED: HYDROCODONE/APAP 5/325 MG TAB PO SCH (09:00)
[2020-08-29] MEDS ORDERED: FENOFIBRATE 54 MG PO SCH (09:00)
[2020-08-29] MEDS ORDERED: NITROGLYCERIN 0.4 MG/TAB SL SCH (09:00)
[2020-08-29] MEDS ORDERED: FUROSEMIDE 40 MG TABLET PO SCH (09:00)
[2020-08-29] MEDS ORDERED: METFORMIN HCL 850 MG TAB PO SCH (09:00)
[2020-08-29] MEDS ORDERED: MULTIVITAMIN TAB PO SCH (09:00)
[2020-08-29] MEDS ORDERED: RIVAROXABAN 20 MG TABLET PO SCH (09:00)
[2020-08-29 09:05] LABS: Thyroid Stimulating Hormone 1.37 uIU/mL (0.360-3.740)
[2020-08-29] MEDS ORDERED: AMIODARONE HCL 200 MG TAB ONE (10:26)
[2020-08-29] MEDS ORDERED: GABAPENTIN 300 MG CAP ONE (10:26)
[2020-08-29] MEDS ORDERED: MULTIVITAMIN TAB PO ONE (10:27)
[2020-08-29] MEDS ORDERED: FUROSEMIDE 40 MG TABLET ONE (10:27)
[2020-08-29] MEDS ORDERED: AMLODIPINE 10 MG TAB ONE (10:27)
[2020-08-29] MEDS ORDERED: HYDROCODONE/APAP 5/325 MG TAB ONE (10:27)
[2020-08-29] MEDS ORDERED: METFORMIN HCL 500 MG TAB ONE (10:28)
[2020-08-29] MEDS ORDERED: ASPIRIN EC 81 MG TAB PO ONE (10:28)
[2020-08-29] MEDS ORDERED: POTASSIUM 25 MEQ EFFERV TAB ONE (10:28)
[2020-08-29] MEDS ORDERED: DIVALPROEX DR 250 MG TAB PO ONE (10:28)
[2020-08-29] MEDS ORDERED: NA CHLORIDE 0.9% 500 ML ONE (10:28)
[2020-08-29] MEDS: AMIODARONE HCL 200 MG TAB PO SCH (10:36)
[2020-08-29] MEDS: DIVALPROEX NA 125 MG CAP PO SCH ×2 (10:37→14:00)
--- NOTE | 2020-08-29 13:40 | EKG ---
Test Date: 2020-08-28 Test Time: 10:31:26 Back Tender Pulp Drier: DORA MEASUREMENT RESULTS: Intervals: Rate: 130 OK: 166 QRSD: 86 QT: 160 QTc: 235 [place]: P: OK: 166 QRS: 2 T: -52 INTERPRETIVE STATEMENTS: Sinus tachycardia Nonspecific ST and T wave abnormality Abnormal ECG Compared to ECG 07/05/2019 08:17:32 ST (T wave) deviation now present Sinus bradycardia no longer present First degree AV block no longer present Electronically Signed On 08-29-20 13:37:15 PHYSICS AND ASTRONOMY PROFESSOR by Ede Wilson
[2020-08-29] MEDS ORDERED: GABAPENTIN 400 MG CAP PO SCH (14:00)
[2020-08-29 16:05] VITALS: O2SAT 99
[2020-08-29 16:11] VITALS: BP 156/89; TEMP 97.9
[2020-08-29] MEDS ORDERED: METOPROLOL TAR 25 MG TAB PO SCH (18:00)
[2020-08-29] MEDS ORDERED: ATORVASTATIN 80 MG TAB PO SCH (21:00)
--- NOTE | 2020-08-29 21:14 | CON ---
Date of Consultation: 08/29/2020 Reason For Consultation: Atrial fibrillation. History Of Present Illness: Mr. Nolasco is a 75-year-old male, who was sent yesterday from our office for rapid atrial flutter and fibrillation. He was admitted to Dr. Gaytan's service via emergency room yesterday. We were consulted for rapid atrial fibrillation. The patient had been placed on IV amio darone as ordered by Dr. Sena yesterday. The patient has complained of shortness of breath and pal pitation. He denied any chest pain, nausea, vomiting, diaphoresis, PND, orthopnea, pedal edema, or s yncope. Denied any fever or chills. Allergies: NONE. Review of Systems: Negative. Social History: Unremarkable. Family History: Negative. Past Medical History: Include diabetes, paroxysmal atrial fibrillation and flutter, hypertension, dy slipidemia, depression, dementia, dysphagia, history of CVA, history of osteoarthritis, and cognitive communication deficits. Medications: At home include amlodipine, Lipitor, Depakote, fenofibrate, Lasix, Neurontin, Amaryl, m agnesium, metformin, multivitamins, Xarelto. Physical Examination: Vital Signs: When I saw him today, he has been on IV amiodarone and has reverted back to normal sinu s rhythm. His blood pressure is 156/80. He was afebrile. HEENT: Negative. Neck: Supple with no bruit. Chest: Clear to auscultation and percussion. Cardiac: Regular rhythm and rate with an S4 gallops. No murmurs or rubs. Abdomen: Benign. Extremities: No clubbing, cyanosis, or edema. Diagnostic Data: Fairly unremarkable except for a BNP of 526. His potassium was adequate. Creatini ne was normal at 1.06 with a GFR of 68. His chest x-ray was negative. Initial EKG showed atrial fib rillation. Today, he is in sinus rhythm to sinus tachycardia. Impression And Plan: 1.Paroxysmal atrial fibrillation, that has resolved on IV amiodarone. We will put him on 400 mg p.o . b.i.d. of amiodarone. We will see him in the office in the next 3 to 4 days. 2.Diabetes, well controlled. 3.Dyslipidemia, well controlled. 4.Hypertension, well controlled. 5.Dementia. 6.Depression. 7.History of cerebrovascular accident with dysphagia, cognitive communication defect. The patient is to continue his home medication except for the addition of amiodarone. He needs to co ntinue his Xarelto. He can go home. We will see him in the office in the near future. GRABIEL/ERUM Voice ID: [id number] Report ID: [id number]
[2020-08-30] MEDS ORDERED: GLIMEPIRIDE 2 MG TABLET PO SCH (08:00)
[2020-08-30] MEDS ORDERED: FENOFIBRATE 54 MG PO SCH (09:00)
--- NOTE | 2020-08-30 20:05 | EKG ---
Test Date: 2020-08-28 Test Time: 19:49:08 Cold Roll Operator: THIERNO MEASUREMENT RESULTS: Intervals: Rate: 116 OR: 184 QRSD: 98 QT: 308 QTc: 428 [place]: P: 70 OR: 184 QRS: 37 T: -25 INTERPRETIVE STATEMENTS: Sinus tachycardia Nonspecific ST and T wave abnormality Abnormal ECG Compared to ECG 08/28/2020 10:31:26 No significant changes Electronically Signed On 08-30-20 20:01:54 SHEET MUSIC SALESPERSON by Ede Wilson
== END 2020-08-29 16:12 ==
LOC: ER 10:15 → INTOOBSV 12:26 → ERHOLD 12:26
PROVIDERS: ADMIT Hospitalist; ATTEND Hospitalist
DX: I48.0 Paroxysmal atrial fibrillation (principal); E11.40 Type 2 diabetes mellitus with diabetic neuropathy, unspecified; Z79.01 Long term (current) use of anticoagulants; Z79.84 Long term (current) use of oral hypoglycemic drugs; I10 Essential (primary) hypertension; E78.5 Hyperlipidemia, unspecified; Z20.828 Contact with and (suspected) exposure to other viral communicable diseases; F32.9 Major depressive disorder, single episode, unspecified; F03.90 Unspecified dementia, unspecified severity, without behavioral disturbance, psychotic disturbance, mood disturbance, and anxiety; M19.90 Unspecified osteoarthritis, unspecified site; I69.315 Cognitive social or emotional deficit following cerebral infarction; I69.391 Dysphagia following cerebral infarction; I69.351 Hemiplegia and hemiparesis following cerebral infarction affecting right dominant side; Z51.5 Encounter for palliative care; Z87.891 Personal history of nicotine dependence; R94.31 Abnormal electrocardiogram [ECG] [EKG]
CPT/HCPCS: 96365; 93005 ×2; 93306; 85025 ×2; 80048; 36415; 83735 ×2; 84100; 85610 ×2; 80076; 85730; 84443; 81003; 84484 ×3; 84439; 80053; 83880 ×2; 71045; 96375; 99285; 96366; U0003; J0282 ×3; J3475; J7060; J7050; J7040; G0378 ×3

== ENCOUNTER 2020-11-04 02:20 | Observation (INO) | payer OTHER ==
[2020-11-04] MEDS ORDERED: NA CHLORIDE 0.9% 1,000 ML ONE (02:46)
[2020-11-04] MEDS ORDERED: DERMABOND SKIN ADHESIVE TOP ONE (02:46)
[2020-11-04] MEDS ORDERED: D50W 50 ML IV ONE (02:46)
[2020-11-04 03:07] LABS: Absolute Lymphocytes (CBC) 1.9 K/uL (0.7-4.9); Basophils % 0.2 % (0-1.3); Hematocrit 40.2 % (39.6-49.0); RBC Red Blood Cell Count 4.36 M/uL (4.33-5.43)
[2020-11-04 03:14] LABS: ALT/SGPT 37 U/L (12-78); AST/SGOT 31 U/L (15-37); Albumin 3.3 g/dL (3.4-5.0); Alkaline Phosphatase 74 U/L (45-117); BUN Blood Urea Nitrogen 26 mg/dL (7-18); Bicarbonate 26 mmol/L (21-32); Bilirubin Direct 0.1 mg/dL (0-0.2); Bilirubin Total 0.3 mg/dL (0.2-1.0); Creatine Phosphokinase 88 U/L (39-308); Glucose Level 46 mg/dL (74-106); Lipase 150 U/L (73-393); Magnesium 1.7 mg/dL (1.8-2.4); Protein, Total 7.3 g/dL (6.4-8.2); Protime INR 1.64; Sodium Level 140 mmol/L (136-145); Troponin (Emerg Dept Use Only) < 0.02 ng/mL (0.0-0.045)
[2020-11-04 04:14] LABS: Urine Blood NEGATIVE (NEG); Urine Glucose NEGATIVE (NEG); Urine Protein NEGATIVE (NEG); Urine Specific Gravity 1.015 (1.005-1.030)
--- NOTE | 2020-11-04 04:14 | EDPHYS ---
Physician Documentation [facility] Name: Dwight Nolasco Age: 75 yrs Sex: Male : 1945 Arrival Date: 11/04/2020 Time: 02:21 Bed 6 Private MD: ED Physician Jeanne Booth HPI: 11/04 02:30 This 75 yrs old Male presents to ER via EMS with complaints of Fall Injury. ma2 02:30 Onset: The symptoms/episode began/occurred suddenly, 1 hour(s) ago. Severity of ma2 symptoms: At their worst the symptoms were mild, in the emergency department the symptoms are unchanged. The patient has not experienced similar symptoms in the past. Historical: - Allergies: 02:24 No Known Allergies; rv - Home Meds: 08:49 amiodarone 400 mg Oral tab twice a day [Active]; amlodipine 10 mg oral tab once daily sv [Active]; atorvastatin 80 mg Oral tab 1 tab nightly [Active]; Depakote Sprinkles 125 mg Oral cpSP 2 caps every 8 hours [Active]; duloxetine 20 mg Oral cpDR daily [Active]; fenofibrate 54 mg Oral tab once daily [Active]; furosemide 40 mg Oral tab once daily [Active]; gabapentin 800 mg Oral tab 1 tab 3 times per day [Active]; glimepiride 1 mg oral tab once daily [Active]; glimepiride 2 mg Oral tab 1 tab once daily [Active]; guaifenesin 100 mg/5 mL Oral liqd evry 8 hrs PRN for cough [Active]; hydrocodone-acetaminophen 5-325 mg Oral tab BID [Active]; lisinopril 20 mg Oral tab once daily [Active]; metformin 850 mg Oral tab 1 tab 2 times per day [Active]; Milk of Magnesia 400 mg/5 mL Oral susp 30 mL every 6hrs PRN for constipation [Active]; multivitamin 1 tab daily Oral [Active]; Nitrostat 0.4 mg SL subl [Active]; Xarelto 20 mg Oral tab 1 tab once daily [Active]; - PMHx: 02:24 atrial flutter; cognitive communication deficit; CVA; Dementia; Depression; DYSPHAGIA; rv Hyperlipidemia; Hypertension; osteoarthritis; Type 2 Diabetes; 08:49 Cellulitis; Hemiplegia; sv - Immunization history:: Adult Immunizations up to date. - Social history:: Smoking status: Patient/guardian denies using tobacco. ROS: 02:31 Constitutional: Negative for fever, chills, and weight loss, ENT: Negative for injury, ma2 pain, and discharge, Neck: Negative for injury, pain, and swelling, Cardiovascular: Negative for chest pain, palpitations, and edema, Abdomen/GI: Negative for abdominal pain, nausea, diarrhea, and constipation, Back: Negative for injury and pain. 02:31 All other systems are negative. Exam: 02:31 Constitutional: This is a well developed, well nourished patient who is awake, alert, ma2 and in no acute distress. Head/Face: has 1 cm lozano[perficial lac over right eyebraw, otherwise Normocephalic, ENT: Nares patent. No nasal discharge, no septal abnormalities noted. Tympanic membranes are normal and external auditory canals are clear. Oropharynx with no redness, swelling, or masses, exudates, or evidence of obstruction, uvula midline. Mucous membranes moist. Neck: Trachea midline, no thyromegaly or masses palpated, and no cervical lymphadenopathy. Supple, full range of motion without nuchal rigidity, or vertebral point tenderness. No Meningismus. Chest/axilla: Normal chest wall appearance and motion. Nontender with no deformity. No lesions are appreciated. Cardiovascular: Regular rate and rhythm with a normal S1 and S2. No gallops, murmurs, or rubs. Normal PMI, no JVD. No pulse deficits. Respiratory: Lungs have equal breath sounds bilaterally, clear to auscultation and percussion. No rales, rhonchi or wheezes noted. No increased work of breathing, no retractions or nasal flaring. Abdomen/GI: Soft, non-tender, with normal bowel sounds. No distension or tympany. No guarding or rebound. No evidence of tenderness throughout. Back: No spinal tenderness. No costovertebral tenderness. Full range of motion. Skin: Warm, dry with normal turgor. Normal color with no rashes, no lesions, and no evidence of cellulitis. MS/ Extremity: Pulses equal, no cyanosis. Neurovascular intact. Full, normal range of motion. Neuro: Awake and alert, GCS 15, oriented to person, place, time, and situation. Cranial nerves II-XII grossly intact. Motor strength 5/5 in all extremities. Sensory grossly intact. Cerebellar exam normal. Normal gait. Psych: Awake, alert, with orientation to person, place and time. Behavior, mood, and affect are within normal limits. Vital Signs: 02:21 BP 148 / 77; Pulse 51; Resp 16; Temp 97.7; Pulse Ox 96% on R/A; rv 07:00 BP 114 / 84; Pulse 74; Resp 18; Pulse Ox 97% ; sv 08:00 BP 150 / 79; Pulse 65; Resp 20; Pulse Ox 97% ; sv 09:00 BP 162 / 81; Pulse 63; Resp 15; Pulse Ox 98% ; sv 10:13 Weight 87 kg; Height 6 ft. 0 in. (182.88 cm); sv 10:13 Body Mass Index 26.01 (87.00 kg, 182.88 cm) sv MDM: 02:22 Patient medically screened. [facility] 02:31 Differential diagnosis: closed head injury, contusion, fracture, laceration, sprain, [facility] strain. 04:12 Data reviewed: vital signs, nurses notes. Counseling: I had a detailed discussion with [facility] the patient and/or guardian regarding: the historical points, exam findings, and any diagnostic results supporting the discharge/admit diagnosis, the presence of at least one elevated blood pressure reading (>120/80) during this emergency department visit, the need for further work-up and treatment in the hospital. Response to treatment: the patient's symptoms have markedly improved after treatment. ED course: patient is on sulfonylurea .. bs is wnl now... . 11/04 02:26 Order name: Basic Metabolic Panel [facility] 11/04 02:26 Order name: CBC with Diff 11/04 02:26 Order name: Ckmb mn11/04 02:26 Order name: CPK 11/04 02:26 Order name: Hepatic Function [facility] 11/04 02:26 Order name: Lipase [facility] 11/04 02:26 Order name: Magnesium [facility] 11/04 02:26 Order name: Protime (+inr); Complete Time: 03:31 [facility] 11/04 02:26 Order name: Ptt, Activated; Complete Time: 03:31 [facility] 11/04 02:26 Order name: Troponin (emerg Dept Use Only); Complete Time: 03:31 ma2 11/04 02:26 Order name: Basic Metabolic Panel; Complete Time: 03:31 EDMS 11/04 02:27 Order name: CBC with Automated Diff; Complete Time: 03:31 EDMS 11/04 02:27 Order name: CKMB Creatine Kinase MB; Complete Time: 03:31 EDMS 11/04 02:27 Order name: Creatine Phosphokinase; Complete Time: 03:31 EDMS 11/04 02:27 Order name: Liver (Hepatic) Function; Complete Time: 03:31 EDMS 11/04 02:27 Order name: Lipase; Complete Time: 03:31 EDMS 11/04 02:27 Order name: Magnesium; Complete Time: 03:31 EDMS 11/04 02:40 Order name: Glucose, Ancillary Testing; Complete Time: 03:09 EDMS 11/04 03:20 Order name: Glucose, Ancillary Testing; Complete Time: 03:31 EDMS 11/04 04:06 Order name: Urine Dipstick--Ancillary (enter results) [facility] 11/04 04:07 Order name: Urine Dipstick-Ancillary [facility] 11/04 04:12 Order name: COVID-19 : Document "Date of Symptom Onset" if Symptomatic. 11/04 05:31 Order name: SARS-COV-2 RT PCR [facility] 11/04 07:41 Order name: Glucose, Ancillary Testing [facility] 11/04 08:47 Order name: Glucose, Ancillary Testing [facility] 11/04 09:26 Order name: Procalcitonin [facility] 11/04 10:16 Order name: Glucose, Ancillary Testing [facility] 11/04 10:49 Order name: Glucose, Ancillary Testing [facility] 11/04 02:26 Order name: CT Head C Spine [facility] 11/04 02:26 Order name: EKG; Complete Time: 02:27 ma2 11/04 02:26 Order name: Cardiac monitoring; Complete Time: 02:49 ma2 11/04 02:26 Order name: EKG - Nurse/Tech; Complete Time: 02:49 ma2 11/04 02:26 Order name: IV Saline Lock; Complete Time: 02:50 ma2 11/04 02:26 Order name: Labs collected and sent; Complete Time: 02:49 ma2 11/04 02:26 Order name: NPO; Complete Time: 02:49 ma2 11/04 02:26 Order name: O2 Per Protocol; Complete Time: 02:49 ma2 11/04 02:26 Order name: O2 Sat Monitoring; Complete Time: 02:49 mn2 11/04 02:26 Order name: Urine Dipstick-Ancillary (obtain specimen); Complete Time: 04:04 ma2 11/04 02:27 Order name: Dermabond; Complete Time: 02:48 ma2 11/04 04:57 Order name: Consistent Carb (ADA) 2000 Benjamin; Complete Time: 08:31 EDMS 11/04 11:21 Order name: CBC with Automated Diff EDMS 11/04 11:28 Order name: Basic Metabolic Panel EDMS 11/04 11:28 Order name: Phosphorus EDMS 11/04 11:28 Order name: Magnesium EDMS 11/04 12:03 Order name: Hemoglobin A1c EDMS 11/04 12:24 Order name: Glucose, Ancillary Testing EDMS 11/04 13:55 Order name: Glucose, Ancillary Testing EDMS 11/04 16:16 Order name: Glucose, Ancillary Testing EDMS 11/04 18:28 Order name: Glucose, Ancillary Testing EDMS Administered Medications: 02:48 Drug: [id number] 50 ml Route: IVP; Site: left antecubital; rv 05:25 Follow up: Response: Blood sugar is elevated rv 02:49 Drug: NS 0.9% 1000 ml Route: IV; Rate: 125 ml/hr; Site: left antecubital; rv 05:24 Follow up: IV Status: Completed infusion; IV converted to saline lock rv Disposition: 11/04/20 04:13 Hospitalization ordered by Fernando Severino for Observation. Preliminary diagnosis is Hypoglycemia, unspecified. - Bed requested for Telemetry/MedSurg (observation). - Status is Observation. sv - Condition is Stable. - Problem is new. - Symptoms are unchanged. Signatures: Dispatcher [employer] EDAZ Gretta Mcdaniels Stephanie, RN RN Jeanne Miramontes MD MD mn2 Justin Pires RN RN rv Corrections: (The following items were deleted from the chart) 04:38 04:12 CORONAVIRUS ordered. EDMS EDMS 05:56 02:32 GLUCOSE+C.LAB.BRZ ordered. EDMS EDMS 07:41 04:13 Hospitalization Ordered by Fernando Severino DO for Observation. Preliminary bd diagnosis is Hypoglycemia, unspecified. Bed requested for Telemetry/MedSurg (observation). Status is Observation. Condition is Stable. Problem is new. Symptoms are unchanged. ma2 17:44 07:41 11/04/2020 04:13 Hospitalization Ordered by Fernando Severino DO for Observation. bd Preliminary diagnosis is Hypoglycemia, unspecified. Bed requested for [facility] ER HOLD. Status is Observation. Condition is Stable. Problem is new. Symptoms are unchanged. bd 18:53 17:44 11/04/2020 04:13 Hospitalization Ordered by Fernando Severino DO for Observation. sv Preliminary diagnosis is Hypoglycemia, unspecified. Bed requested for Telemetry/MedSurg (observation). Status is Observation. Condition is Stable. Problem is new. Symptoms are unchanged. bd
--- NOTE | 2020-11-04 04:14 | ER ---
Nurse's Notes [facility] – [place], [place] Name: Dwight Nolasco Age: 75 yrs Sex: Male : 1945 Arrival Date: 11/04/2020 Time: 02:21 Bed 6 Private MD: Diagnosis: Hypoglycemia, unspecified Presentation: 11/04 02:21 Chief complaint: EMS states: PATIENT IS FROM [place], FOUND OUT OF BED, NORMALLY NON rv AMBULATORY. WITH HISTORY OF DM, INITIAL BGL WAS "LOW", GIVEN ORAL GLUCOSE PACKET, SUGAR INCREASED TO 20. WITH LACERATION ON THE RIGHT EYE BROW, AND SKIN TEAR TO BOTH ELBOWS. Coronavirus screen: Client denies travel out of the [place] in the last 14 days. Ebola Screen: No symptoms or risks identified at this time. Initial Sepsis Screen: Does the patient meet any 2 criteria? No. Patient's initial sepsis screen is negative. Does the patient have a suspected source of infection? No. Patient's initial sepsis screen is negative. Risk Assessment: Do you want to hurt yourself or someone else? Patient reports no desire to harm self or others. Onset of symptoms is unknown. 02:21 Method Of Arrival: EMS: [facility] rv 02:21 Acuity: BEVERLY 3 rv Triage Assessment: 02:25 General: Appears comfortable, Behavior is calm, cooperative. Pain: Complains of pain in rv face. Historical: - Allergies: 02:24 No Known Allergies; rv - Home Meds: 08:49 amiodarone 400 mg Oral tab twice a day [Active]; amlodipine 10 mg oral tab once daily sv [Active]; atorvastatin 80 mg Oral tab 1 tab nightly [Active]; Depakote Sprinkles 125 mg Oral cpSP 2 caps every 8 hours [Active]; duloxetine 20 mg Oral cpDR daily [Active]; fenofibrate 54 mg Oral tab once daily [Active]; furosemide 40 mg Oral tab once daily [Active]; gabapentin 800 mg Oral tab 1 tab 3 times per day [Active]; glimepiride 1 mg oral tab once daily [Active]; glimepiride 2 mg Oral tab 1 tab once daily [Active]; guaifenesin 100 mg/5 mL Oral liqd evry 8 hrs PRN for cough [Active]; hydrocodone-acetaminophen 5-325 mg Oral tab BID [Active]; lisinopril 20 mg Oral tab once daily [Active]; metformin 850 mg Oral tab 1 tab 2 times per day [Active]; Milk of Magnesia 400 mg/5 mL Oral susp 30 mL every 6hrs PRN for constipation [Active]; multivitamin 1 tab daily Oral [Active]; Nitrostat 0.4 mg SL subl [Active]; Xarelto 20 mg Oral tab 1 tab once daily [Active]; - PMHx: 02:24 atrial flutter; cognitive communication deficit; CVA; Dementia; Depression; DYSPHAGIA; rv Hyperlipidemia; Hypertension; osteoarthritis; Type 2 Diabetes; 08:49 Cellulitis; Hemiplegia; sv - Immunization history:: Adult Immunizations up to date. - Social history:: Smoking status: Patient/guardian denies using tobacco. Screenin:25 Abuse screen: Denies threats or abuse. Denies injuries from another. Nutritional rv screening: No deficits noted. Tuberculosis screening: No symptoms or risk factors identified. Fall Risk Fall in past 12 months (25 points). Secondary diagnosis (15 points) dementia, No IV (0 pts). Ambulatory Aid- Crutches/Cane/Walker (15 pts). Gait- Weak (10 pts.). Mental Status- Overestimates/Forgets Limitations (15 pts.). Total Stack Fall Scale indicates High Risk Score (45 or more points). Fall prevention measures have been instituted. Side Rails Up X 2 Placed Close to Nursing Station Frequent Obs/Assessments Occuring As available patient and family educated on Fall Prevention Program and Strategies. Assessment: 11/03 02:30 General: Appears in no apparent distress. comfortable, well developed, well nourished, sg Behavior is cooperative, quiet. Pain: Complains of pain in forehead Quality of pain is described as aching. Neuro: Level of Consciousness is awake, obeys commands, confused, Speech is normal. Cardiovascular: Patient's skin is warm and dry. Chest pain is denied. Respiratory: Airway is patent Respiratory effort is even, unlabored, Respiratory pattern is regular, symmetrical. GI: Abdomen is round non-distended. : No signs and/or symptoms were reported regarding the genitourinary system. EENT: No signs and/or symptoms were reported regarding the EENT system. Derm: Skin is healthy with good turgor, is thin, Skin is dry, Skin is pink, warm \\T\\ dry. Skin temperature is warm. Musculoskeletal: Circulation, motion, and sensation intact. Range of motion: limited in right ankle Swelling present in right broderick, anterior aspect of right ankle and dorsum of right foot. Injury Description: Laceration sustained to forehead is clean, superficial, 0.5 to 2.5 cm long, not bleeding, skin tear noted to the L elbow. Vital Signs: 11/04 02:21 BP 148 / 77; Pulse 51; Resp 16; Temp 97.7; Pulse Ox 96% on R/A; rv 07:00 BP 114 / 84; Pulse 74; Resp 18; Pulse Ox 97% ; sv 08:00 BP 150 / 79; Pulse 65; Resp 20; Pulse Ox 97% ; sv 09:00 BP 162 / 81; Pulse 63; Resp 15; Pulse Ox 98% ; sv 10:13 Weight 87 kg; Height 6 ft. 0 in. (182.88 cm); sv 10:13 Body Mass Index 26.01 (87.00 kg, 182.88 cm) sv ED Course: 02:21 Patient arrived in ED. cf2 02:21 Justin Pires, SONNY is Primary Nurse. rv 02:22 Jeanne Booth MD is Attending Physician. ma2 02:23 Triage completed. rv 02:24 Arm band placed on right wrist. Patient placed in the treatment room, on a stretcher, rv Patient notified of wait time. 02:25 Patient has correct armband on for positive identification. rv 02:30 Initial lab(s) drawn, by fl, sent to lab. Inserted saline lock: 20 gauge in left sg antecubital area, using aseptic technique. Blood collected. 03:04 FSBG results 50, a serum blood draw has been sent. sg 03:12 CT Head C Spine In Process Unspecified. EDMS 03:15 Notified ED physician of a critical lab result(s). Glucose 46, repeat FSBG is 127 per sg primary nurse Shaq. 04:13 Fernando Severino DO is Hospitalizing Provider. ma2 05:24 No provider procedures requiring assistance completed. IV is patent, with fluids rv infusing freely, Patient admitted, IV remains in place. 08:26 Primary Nurse role handed off by Justin Pires RN sv 08:26 David, Brina, RN is Primary Nurse. sv 08:31 Urine Dipstick--Ancillary (enter results) Sent. sv 08:32 COVID-19 : Document "Date of Symptom Onset" if Symptomatic. Sent. sv 09:57 Magnesium Sent. sv 09:57 Lipase Sent. sv 09:57 Hepatic Function Sent. sv 09:57 CPK Sent. sv 09:57 Ckmb Sent. sv 09:57 CBC with Diff Sent. sv 09:57 Basic Metabolic Panel Sent. sv Administered Medications: 02:48 Drug: D50W 50 ml Route: IVP; Site: left antecubital; rv 05:25 Follow up: Response: Blood sugar is elevated rv 02:49 Drug: NS 0.9% 1000 ml Route: IV; Rate: 125 ml/hr; Site: left antecubital; rv 05:24 Follow up: IV Status: Completed infusion; IV converted to saline lock rv Output: 05:00 Urine: 600ml (Voided); Total: 600ml. rv Outcome: 04:13 Decision to Hospitalize by Provider. ma2 05:24 Condition: good rv 07:30 Admitted to ER Hold. Please see [facility] for further documentation. sv 07:30 Instructed on the need for admit. 18:53 Patient left the ED. sv Signatures: Dispatcher [employer] EDBrina Hyman, SONYN DENNIS Giorgi Carrera RN RN Jeanne Booth MD MD [facility] Justin Pires RN RN Mele Farr 2 Corrections: (The following items were deleted from the chart) 10:13 10:13 78 kg; Height 6 ft. 0 in.; BMI: 23.3; sv sv
[2020-11-04] MEDS ORDERED: IPRATROPIUM BROM 0.5MG/2.5ML NEB PRN (04:52)
[2020-11-04] MEDS ORDERED: ALBUTEROL 2.5 MG/3 ML NEB SOL NEB PRN (04:52)
[2020-11-04] MEDS ORDERED: ACETAMINOPHEN 500 MG TAB PO PRN (04:52)
--- NOTE | 2020-11-04 05:07 | P.HP ---
Patient History Date of Service: 11/04/20 Reason for admission: Hypoglycemia History of Present Illness: 75 y o male pt with hx of hypertension, hyperlipidemia, diabetes type 2 on glimepiride who was admitted for management of severe hypoglycemia. hx given was that he had a fall at his residence and he was noted to be altered. he was found to be severely hypoglycemic with blood glucose of 20 on initial eval. he had a laceration over the right eyebrow at the time of his fall. repeat blood glucose done in the ER was 46. he was given D50W bolus dose and was started on IV fluid. His blood glucose improved to 127 on routine monitoring. His surveillance CT head and neck showed no significant abnormalities. Allergies No Known Allergies Allergy (Verified 11/07/14 20:31) Home Medications: Hydrocodone Bit/Acetaminophen [Hydrocodon-Acetaminophen 5-325] 1 tab PO BID 07/23/14 Metformin HCl 1 tab PO BID 07/23/14 Fenofibrate [Lofibra] 54 mg PO DAILY 11/07/14 Furosemide [Lasix] 40 mg PO DAILY 07/04/19 Atorvastatin Calcium [Lipitor] 80 mg PO BEDTIME 08/28/20 Divalproex [Depakote Sprinkle*] 250 mg PO TID 08/28/20 Duloxetine HCl 20 mg PO DAILY 08/28/20 Gabapentin [Neurontin] 800 mg PO TID 08/28/20 Glimepiride [Amaryl] 1 mg PO DAILY 08/28/20 Magnesium Hydroxide [Milk of Magnesia] 30 ml PO Q6HP PRN 08/28/20 Multivitamin [Daily Multiple Vitamin] 1 tab PO DAILY 08/28/20 Nitroglycerin [Nitrostat*] 1 tab SL SEECOM 08/28/20 Rivaroxaban [Xarelto] 20 mg PO DAILY 08/28/20 guaiFENesin [Scot-Tussin Expectorant] 100 mg PO Q8HP PRN 08/28/20 Amiodarone HCl [Pacerone] 400 mg PO BID #60 tablet 08/29/20 Amlodipine [Norvasc*] 10 mg PO DAILY #30 tab 08/29/20 - Past Medical/Surgical History Diabetic: Yes -: HTN -: CVA -: Dementia -: neuropathy -: aflutter -: osteoarthritis -: type 2 dm -: hyperlipidemia -: depression -: covid -: hemiplegia rue - Social History Alcohol use: No CD- Drugs: No Caffeine use: Yes Review of Systems General: Unremarkable Eyes: Unremarkable ENT: Other (lacration over the right eyebrow.), Unremarkable Respiratory: Unremarkable Cardiovascular: Unremarkable Gastrointestinal: Unremarkable Genitourinary: Unremarkable Musculoskeletal: Unremarkable Integumentary: Unremarkable Neurological: Other (fall.) Physical Examination - Physical Exam General: Alert, Oriented x3 HEENT: Normocephalic, Other (l;aceration over the right eyebrow.) Neck: Supple Respiratory: Clear to auscultation bilaterally Cardiovascular: Regular rate/rhythm, Normal S1 S2 Gastrointestinal: Normal bowel sounds Integumentary: No rashes Neurological: Normal speech, Normal strength at 5/5 x4 extr, Cranial nerves 3-12 intact - Studies Laboratory Data (last 24 hrs) 11/04/20 02:30: PT 19.0 H, INR 1.64, APTT 34.3 11/04/20 02:30: WBC 10.20, Hgb 13.4 L, Hct 40.2, Plt Count 297 11/04/20 02:30: Sodium 140, Potassium 4.0, BUN 26 H, Creatinine 1.49 H, Glucose 46 L*, Magnesium 1.7 L, Total Bilirubin 0.3, AST 31, ALT 37, Alkaline Phosphatase 74, Lipase 150 Assessment and Plan - Plan 1.Hypoglycemia-his blood glucose was low at 46 on initial eval in the ED. blood glucose of 127 was recorded after D50W was given. we will monitor his blood glucose q1hr for the mean time pending further review. we will hold glimepiride for now. 2.Hypertension-we will monitor his blood pressure per unit protocol and continue antihypertensive meds. 3.Diabetes type 2-was on glimepiride. we will hold this drug as it was causing hypoglycemia. we will review antidiabetic meds prior to discharge. 4.Hyperlipidemia-we will continue statin therapy. 5.Fall-deemed due to hypoglycemia. we will have on bed rest for now. PT will evaluate. 6.head injury- He did have a fall and he had laceration over the right eyebrow. we will have him on routine neurochecks and he was have appropriate care of his laceration. Discharge Plan: Home - Advance Directives Does patient have a Living Will: No Does patient have a Durable POA for Healthcare: No
[2020-11-04] MEDS: D5 0.45 NS 1,000 ML IV SCH ×2 (05:20→15:00)
[2020-11-04] MEDS ORDERED: D50W 25 GM/50 ML SYRINGE IV ONE ×2 (07:40→07:50)
--- NOTE | 2020-11-04 08:48 | P.PN ---
Subjective Date of Service: 11/04/20 Patient still remaining hypoglycemic. Continue with IV fluids and will check for other etiologies of hypoglycemia. It does not appear that patient is on any insulin at the [facility]. Will check levels and will check a hemoglobin A1c as well. Review of Systems 10-point ROS is otherwise unremarkable Physical Examination - Vital Signs Temperature: 98 F Blood Pressure: 140/70 Pulse: 80 Respirations: 18 Pulse Ox (%): 100 - Physical Exam General: Alert, In no apparent distress Respiratory: Clear to auscultation bilaterally, Normal air movement Cardiovascular: Regular rate/rhythm, Normal S1 S2, Systolic murmur Gastrointestinal: Normal bowel sounds, Soft and benign, Non-distended Musculoskeletal: No clubbing, No swelling Integumentary: No rashes Neurological: Normal strength at 5/5 x4 extr, Normal tone, Sensation intact, Cranial nerves 3-12 intact - Studies Laboratory Data (last 24 hrs) 11/04/20 02:31: Glucose Cancelled 11/04/20 02:30: PT 19.0 H, INR 1.64, APTT 34.3 11/04/20 02:30: WBC 10.20, Hgb 13.4 L, Hct 40.2, Plt Count 297 11/04/20 02:30: Sodium 140, Potassium 4.0, BUN 26 H, Creatinine 1.49 H, Glucose 46 L*, Magnesium 1.7 L, Total Bilirubin 0.3, AST 31, ALT 37, Alkaline Phosphatase 74, Lipase 150 Assessment & Plan - Problems (Diagnosis) (1) Hypoglycemia Status: Acute (2) Diabetes mellitus Onset Date: 11/11/14 Status: Acute (3) CVA (cerebral vascular accident) Status: Acute (4) Vascular dementia Status: Acute (5) History of atrial fibrillation Status: Acute - Plan Plan: 1. Monitor blood sugars closely 2. Check hemoglobin A1c 3. Q.6 hours blood sugar checks 4. Monitor her cardiac status 5. Strict blood pressure control 6. GI and DVT prophylaxis Discharge Plan: Home Plan to discharge in: Greater than 2 days - Advance Directives Does patient have a Living Will: No Does patient have a Durable POA for Healthcare: No - Code Status/Comfort Care Code Status Assessed: Yes Code Status: Full Code Critical Care: No Time Spent Managing PTS Care (In Minutes): 35
[2020-11-04] MEDS ORDERED: ENOXAPARIN 40 MG/0.4 ML SQ SCH (09:00)
[2020-11-04 10:15] VITALS: BMI 25.9
[2020-11-04 11:19] LABS: Absolute Lymphocytes (CBC) 1.8 K/uL (0.7-4.9); Basophils % 0.3 % (0-1.3); Hematocrit 39.4 % (39.6-49.0); Lymphocytes % 18.8 % (15.3-44.8); MPV 8.9 fL (7.6-11.3); RBC Red Blood Cell Count 4.34 M/uL (4.33-5.43)
[2020-11-04 11:27] LABS: Magnesium 1.7 mg/dL (1.8-2.4); Phosphorus 2.8 mg/dL (2.5-4.9); Potassium 4.2 mmol/L (3.5-5.1)
--- NOTE | 2020-11-04 12:56 | RAD REPORT ---
EXAM DESCRIPTION: CT - Head C Spine Mpr Wo Con - 11/04/2020 6:22 am CLINICAL HISTORY: PAIN TECHNIQUE: Contiguous axial CT images obtained through the brain without IV contrast. Coronal and sa gittal reformatted images were provided. This exam was performed according to our departmental dose-optimization program, which includes autom ated exposure control, adjustment of the mA and/or kV according to patient size and/or use of iterati ve reconstruction technique. COMPARISON: None available for comparison FINDINGS: Brain: There is mild to moderate cerebral atrophy. Left basal ganglia and parietal encepha lomalacia compatible with remote insult. Remote right frontal shunt tract. Mild bilateral periventric ular and subcortical white matter hypodensity which is nonspecific and can be seen in the clinical se tting of chronic microvascular angiopathy. No focal mass effect. Cardenas-white matter differentiation is within normal limits. No hemorrhage. Ventricles: No ventriculomegaly or midline shift. Extra-axial spaces: No extra-axial collection or hemorrhage. Paranasal sinuses and mastoid air cells: Minimal bilateral maxillary sinus mucosal thickening. Vessels: There is atherosclerotic disease of the internal carotid arteries bilaterally and vertebroba silar system. Bones: Remote right frontal suzan hole. Soft tissues: Mild right forehead soft tissue swelling. EXAM DESCRIPTION: CT CERVICAL SPINE WITHOUT IV CONTRAST CLINICAL HISTORY: PAIN TECHNIQUE: Contiguous axial CT images obtained through the cervical spine without IV contrast. Coron al and sagittal reformatted images also provided. This exam was performed according to our departmental dose-optimization program, which includes autom ated exposure control, adjustment of the mA and/or kV according to patient size and/or use of iterati ve reconstruction technique. COMPARISON: None available for comparison FINDINGS: Artifacts: Motion artifact degrades image quality. Vertebra: Grade 1 anterolisthesis of C4 on C5 and T1 on T2 and grade 1 retrolisthesis of C5 on C6. No acute fracture or subluxation. Disc spaces: Moderate multilevel degenerative changes. The central thecal sac is mildly to moderately narrowed at C5-C6. Foramina appear patent. Prevertebral soft tissues: Unremarkable Lung apices: Clear IMPRESSION: CT HEAD: 1. No acute intracranial or extra-axial abnormality. 2. Findings as above. CT CERVICAL: No acute injury. 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 The interpreting radiologist is fully responsible for the content of the report.
[2020-11-04] MEDS ORDERED: guaiFENesin 100 MG/5 ML UCUP PO PRN (13:37)
[2020-11-04] MEDS ORDERED: MAGNESIUM HYDROXIDE 8% 30 ML PO PRN (13:37)
[2020-11-04] MEDS ORDERED: NITROGLYCERIN 0.4 MG/TAB SL SCH (14:00)
[2020-11-04] MEDS ORDERED: DIVALPROEX DR 250 MG TAB PO ONE (15:23)
[2020-11-04] MEDS: GABAPENTIN 400 MG CAP PO SCH ×2 (15:51→22:14)
[2020-11-04] MEDS: DIVALPROEX NA 125 MG CAP PO SCH ×2 (15:51→22:14)
--- NOTE | 2020-11-04 18:41 | EKG ---
Test Date: 2020-11-04 Test Time: 02:37:34 Automatic Furnace Operator: RV MEASUREMENT RESULTS: Intervals: Rate: 58 MN: 264 QRSD: 104 QT: 518 QTc: 508 [place]: P: 60 MN: 264 QRS: -19 T: 25 INTERPRETIVE STATEMENTS: Sinus bradycardia with 1st degree AV block Prolonged QT Abnormal ECG Compared to ECG 08/28/2020 19:49:08 First degree AV block now present Prolonged QT interval now present Sinus tachycardia no longer present ST (T wave) deviation no longer present Electronically Signed On 11-04-20 18:40:13 BOLT HEADER by Ede Wilson
[2020-11-04 19:18] VITALS: O2SAT 98
[2020-11-04] MEDS ORDERED: ATORVASTATIN 80 MG TAB PO SCH (21:00)
[2020-11-04] MEDS: HYDROCODONE/APAP 5/325 MG TAB PO SCH (22:14)
[2020-11-04] MEDS: AMIODARONE HCL 200 MG TAB PO SCH (22:15)
--- NOTE | 2020-11-05 07:19 | P.DS ---
Discharge Date: 11/05/20 Disposition: ROUTINE DISCHARGE Discharge Condition: GOOD Reason for Admission: Hypoglycemia - Problems (1) Hypoglycemia Current Visit: Yes Status: Acute (2) Diabetes mellitus Onset Date: 11/11/14 Current Visit: No Status: Acute (3) CVA (cerebral vascular accident) Current Visit: Yes Status: Acute (4) Vascular dementia Current Visit: Yes Status: Acute (5) History of atrial fibrillation Current Visit: Yes Status: Acute Brief History of Present Illness: Patient is a 75-year-old gentleman who lives [facility] the nursing [facility] who came into the hospital with hypoglycemia. Patient on Amaryl 3 mg daily. Patient A1c was 5.7. It looks like he will be managed appropriately with a diabetic diet for of very low dose of Amaryl going for. Patient on remains hypoglycemic through the evening and he will be admitted for observation stay. Hospital Course: Patient has done well with his blood sugar stabilizing. We have not given him any further Amaryl and his blood sugars are less than 150s. At this time will manage in with a diabetic diet. He has been on a regular diet here in the hospital and he has kept his blood sugars fairly well controlled. Continue on blood sugar monitoring and reassess in 2-4 weeks. He will also need a hemoglobin A1c in 6-12 weeks. At this time I do not advise giving him any oral hypoglycemic agents until we have further data to suggest how aggressive to be going forward regarding his diabetic medications. Vital Signs/Physical Exam: Temp Pulse Resp BP Pulse Ox 97.4 F 62 18 138/61 94 11/05/20 04:00 11/05/20 04:00 11/05/20 04:00 11/05/20 04:00 11/05/20 04:00 General: Cooperative, Demented Laboratory Data at Discharge: WBC 9.50 K/uL (4.3-10.9) 11/04/20 11:05 Hgb 13.4 g/dL (13.6-17.9) L 11/04/20 11:05 Hct 39.4 % (39.6-49.0) L 11/04/20 11:05 Plt Count 296 K/uL (152-406) 11/04/20 11:05 PT 19.0 SECONDS (9.5-12.5) H 11/04/20 02:30 INR 1.64 11/04/20 02:30 APTT 34.3 SECONDS (24.3-36.9) 11/04/20 02:30 Sodium 142 mmol/L (136-145) 11/04/20 11:05 Potassium 4.2 mmol/L (3.5-5.1) 11/04/20 11:05 BUN 19 mg/dL (7-18) H 11/04/20 11:05 Creatinine 1.28 mg/dL (0.55-1.3) 11/04/20 11:05 Glucose 87 mg/dL (74-106) 11/04/20 11:05 Phosphorus 2.8 mg/dL (2.5-4.9) 11/04/20 11:05 Magnesium 1.7 mg/dL (1.8-2.4) L 11/04/20 11:05 Total Bilirubin 0.3 mg/dL (0.2-1.0) 11/04/20 02:30 AST 31 U/L (15-37) 11/04/20 02:30 ALT 37 U/L (12-78) 11/04/20 02:30 Alkaline Phosphatase 74 U/L (45-117) 11/04/20 02:30 Lipase 150 U/L (73-393) 11/04/20 02:30 Home Medications: Hydrocodone Bit/Acetaminophen [Hydrocodon-Acetaminophen 5-325] 1 tab PO BID 07/23/14 Metformin HCl 1 tab PO BID 07/23/14 Fenofibrate [Lofibra] 54 mg PO DAILY 11/07/14 Furosemide [Lasix] 40 mg PO DAILY 07/04/19 Atorvastatin Calcium [Lipitor] 80 mg PO BEDTIME 08/28/20 Divalproex [Depakote Sprinkle*] 250 mg PO TID 08/28/20 Duloxetine HCl 20 mg PO DAILY 08/28/20 Gabapentin [Neurontin] 800 mg PO TID 08/28/20 Glimepiride [Amaryl] 3 mg PO DAILY 08/28/20 Magnesium Hydroxide [Milk of Magnesia] 30 ml PO Q6HP PRN 08/28/20 Multivitamin [Daily Multiple Vitamin] 1 tab PO DAILY 08/28/20 Nitroglycerin [Nitrostat*] 1 tab SL SEECOM 08/28/20 Rivaroxaban [Xarelto] 20 mg PO DAILY 08/28/20 guaiFENesin [Scot-Tussin Expectorant] 100 mg PO Q8HP PRN 08/28/20 Amiodarone HCl [Pacerone] 400 mg PO BID #60 tablet 08/29/20 Amlodipine [Norvasc*] 10 mg PO DAILY #30 tab 08/29/20 lisinopriL [Prinivil] 20 mg PO DAILY 11/04/20 Physician Discharge Instructions: OK TO DC IV AND DC HOME FOLLOW-UP WITH PRIMARY CARE PROVIDER IN 1-2 WEEKS RETURN TO THE ER IF symptoms worsen CALL or TEXT DR. FLORES AT [phone] IF ANY QUESTIONS REGARDING HOSPITAL STAY. PLEASE CALL THE FLOOR AT [phone] IF ANY MEDICATION OR NURSING QUESTIONS. Recheck hemoglobin A1c in 6-12 weeks Diet: AHA Activity: Fall precautions Followup: NONE,NONE [Primary Care Provider] - Time spent managing pt's care (in minutes): 35
[2020-11-05] MEDS ORDERED: METFORMIN HCL 850 MG TAB PO SCH (08:00)
[2020-11-05] MEDS: HYDROCODONE/APAP 5/325 MG TAB PO SCH (08:53)
[2020-11-05] MEDS: AMIODARONE HCL 200 MG TAB PO SCH (08:54)
[2020-11-05] MEDS: DIVALPROEX NA 125 MG CAP PO SCH (08:57)
[2020-11-05] MEDS: GABAPENTIN 400 MG CAP PO SCH (08:57)
[2020-11-05] MEDS ORDERED: lisinopriL 20 MG TAB PO SCH (09:00)
[2020-11-05] MEDS ORDERED: DULOXETINE 20 MG CAP PO SCH (09:00)
[2020-11-05] MEDS ORDERED: RIVAROXABAN 20 MG TABLET PO SCH (09:00)
[2020-11-05] MEDS ORDERED: MULTIVIT W/ MINERAL TAB PO SCH (09:00)
[2020-11-05] MEDS ORDERED: AMLODIPINE 10 MG TAB PO SCH (09:00)
[2020-11-05] MEDS ORDERED: FENOFIBRATE 54 MG PO SCH (09:00)
[2020-11-05] MEDS ORDERED: FUROSEMIDE 40 MG TABLET PO SCH (09:00)
[2020-11-24 05:04] VITALS: BP 140/70; TEMP 98
== END 2020-11-05 11:27 ==
LOC: ER 02:20 → ERHOLD 08:11 → 2ND 18:37
PROVIDERS: ADMIT Hospitalist; ATTEND Hospitalist
DX: E11.649 Type 2 diabetes mellitus with hypoglycemia without coma (principal); F01.50 Vascular dementia, unspecified severity, without behavioral disturbance, psychotic disturbance, mood disturbance, and anxiety; I48.91 Unspecified atrial fibrillation; I10 Essential (primary) hypertension; M19.90 Unspecified osteoarthritis, unspecified site; Z20.822 Contact with and (suspected) exposure to COVID-19; E11.40 Type 2 diabetes mellitus with diabetic neuropathy, unspecified; E78.5 Hyperlipidemia, unspecified; Z86.16 Personal history of COVID-19; I69.351 Hemiplegia and hemiparesis following cerebral infarction affecting right dominant side; F32.9 Major depressive disorder, single episode, unspecified; S01.81XA Laceration without foreign body of other part of head, initial encounter; W19.XXXA Unspecified fall, initial encounter; R94.31 Abnormal electrocardiogram [ECG] [EKG]
CPT/HCPCS: 96361; 93005; 85025 ×2; 80048 ×2; 36415; 83735 ×2; 82550; 84100; 85610; 82947 ×14; 80076; 85730; 81003; 83036; 84484; 82553; 83690; 84145; 70450; 72125; 94640; 96374; 99285; U0003; J1650; J7799; J7030; G0378 ×3

== ENCOUNTER 2021-10-07 22:02 | Inpatient (IN) | payer OTHER ==
[2021-10-08] MEDS ORDERED: LEVALBUTEROL 1.25 MG/3 ML NEB ONE (00:55)
[2021-10-08] MEDS ORDERED: IPRATROPIUM BROM 0.5MG/2.5ML ONE (00:55)
[2021-10-08] MEDS ORDERED: ALBUTEROL 2.5 MG/3 ML NEB SOL ONE (01:32)
--- NOTE | 2021-10-08 02:00 | ER ---
Nurse's Notes [facility] Name: Dwight Nolasco Age: 76 yrs Sex: Male : 1945 Arrival Date: 10/07/2021 Time: 22:27 Bed 15 Private MD: Diagnosis: Coronavirus infection, unspecified;Viral pneumonia, unspecified Presentation: 10/08 01:06 Chief complaint: EMS states: Checkfor covid. wheezes. Coronavirus screen: Vaccine sv1 status: Patient reports receiving the 2nd dose of the covid vaccine. Ebola Screen: No symptoms or risks identified at this time. Initial Sepsis Screen: Does the patient meet any 2 criteria? Does the patient have a suspected source of infection? No. Patient's initial sepsis screen is negative. Risk Assessment: Do you want to hurt yourself or someone else? Patient reports no desire to harm self or others. Onset of symptoms is unknown. 01:06 Method Of Arrival: EMS: [facility] sv1 01:06 Acuity: BEVERLY 3 sv1 Triage Assessment: 01:01 General: Appears distressed, uncomfortable, unkempt, well nourished. Pain: Denies pain. sv1 01:01 General: Behavior is cooperative, appropriate for age. sv1 Historical: - Home Meds: 01:01 amiodarone 400 mg Oral tab twice a day [Active]; amlodipine 10 mg tab once daily sv1 [Active]; atorvastatin 80 mg Oral tab 1 tab nightly [Active]; Betapace 40mg Oral tab 2 times per day [Active]; Depakote 125 mg Oral TbEC 2 tabs 3 times per day [Active]; Depakote Sprinkles 125 mg Oral cpSP 2 caps every 8 hours [Active]; duloxetine 20 mg Oral cpDR daily [Active]; fenofibrate 54 mg Oral tab once daily [Active]; furosemide 40 mg Oral tab once daily [Active]; gabapentin 800 mg Oral tab 1 tab 3 times per day [Active]; glimepiride 1 mg Oral tab once daily [Active]; glimepiride 2 mg Oral tab 1 tab once daily [Active]; guaifenesin 100 mg/5 mL Oral liqd evry 8 hrs PRN for cough [Active]; hydrocodone-acetaminophen 5-325 mg Oral tab BID [Active]; lisinopril 20 mg Oral tab once daily [Active]; metformin 850 mg Oral tab 1 tab 2 times per day [Active]; Milk of Magnesia 400 mg/5 mL Oral susp 30 mL every 6hrs PRN for constipation [Active]; multivitamin 1 tab daily Oral [Active]; Nitrostat 0.4 mg SL subl [Active]; Xarelto 20 mg Oral tab 1 tab once daily [Active]; - PMHx: 01:01 atrial flutter; Cellulitis; cognitive communication deficit; CVA; Dementia; DYSPHAGIA; sv1 Depression; hemiplegia; Hyperlipidemia; Hypertension; osteoarthritis; Type 2 Diabetes; - Immunization history:: Adult Immunizations Client reports receiving the 2nd dose of the Covid vaccine. - Social history:: Smoking status: unknown. Screenin:05 Abuse screen: Denies threats or abuse. Nutritional screening: No deficits noted. sv1 Tuberculosis screening: No symptoms or risk factors identified. Fall Risk No fall in past 12 months (0 pts). No IV (0 pts). Ambulatory Aid- Crutches/Cane/Walker (15 pts). Gait- Impaired (20 pts.). Mental Status- Overestimates/Forgets Limitations (15 pts.). Assessment: 01:09 Reassessment: Respiratory meds started. Upon arrival the patient appears very unkempt. sv1 He smells like urine. There is dried food on his clothes.. 04:05 Reassessment: Patient states symptoms have not improved. To be admitted to medical sv1 surgical floor. . 04:25 Reassessment: Report called to Mckenzie DENNIS. sv1 Vital Signs: 10/07 20:30 BP 146 / 63; Pulse 56; Resp 18; Temp 98.3; Pulse Ox 98% 00 lpm ; sv1 01 00:55 BP 101 / 45; Pulse 55; Resp 14; Temp 98.1(O); Pulse Ox 95% ; ds4 02:50 BP 146 / 63; Pulse 60; Resp 18; Pulse Ox 96% ; sv1 04:07 BP 149 / 63; Pulse 58; Resp 16; Temp 98.4; Pulse Ox 95% 0 lpm ; sv1 ED Course: 10/07 22:27 Patient arrived in ED. sv1 22:28 Giorgi Camargo, SONNY is Primary Nurse. sv1 22:28 [facility]C [facility] kb 22:28 Prosper Hensley MD is Attending Physician. kb 22:48 SARS-COV-2 RT PCR Sent. sv1 22:48 COVID-19 SARS RT PCR (Document "Date of Onset" if Symptomatic) Sent. sv1 23:06 Chest Single View XRAY In Process Unspecified. EDMS 10/08 01:01 Arm band placed on right wrist. sv1 01:05 Patient has correct armband on for positive identification. Bed in low position. Call sv1 light in reach. Side rails up X2. 01:08 Triage completed. sv1 01:59 Jeanne Gaytan MD is Hospitalizing Provider. kb 02:38 SARS-COV-2 RT PCR Sent. sv1 02:38 C-Reactive Protein Sent. sv1 02:38 Blood Culture Sent. sv1 02:38 Basic Metabolic Panel Sent. sv1 02:38 BMP Sent. sv1 02:38 Blood Culture Adult (2) Sent. sv1 02:38 C-Reactive Protein Sent. sv1 02:39 CBC with Diff Sent. sv1 02:39 Ferritin Sent. sv1 02:39 LFT's Sent. sv1 02:39 Lactate Sent. sv1 02:39 Lipase Sent. sv1 02:39 PT-INR Sent. sv1 02:39 Procalcitonin Sent. sv1 02:39 Ptt, Activated Sent. sv1 02:39 Troponin HS Sent. sv1 04:07 No provider procedures requiring assistance completed. Patient admitted, IV remains in sv1 place. 04:14 Blood Culture Sent. sv1 04:14 COVID-19 SARS RT PCR (Document "Date of Onset" if Symptomatic) Sent. sv1 Administered Medications: 01:00 Drug: Xopenex (levalbuterol) 1.25 mg Route: Inhalation; sv1 01:00 Drug: AtroVENT (ipratropium) Aerosol 0.5 mg Route: Inhalation; sv1 01:36 Drug: Albuterol 2.5 mg Route: Inhalation; sv1 02:47 Drug: SOLU-Medrol (methylPrednisoLONE) 60 mg Route: IVP; Site: left hand; sv1 04:09 Follow up: Response: No adverse reaction sv1 04:14 Follow up: Response: No adverse reaction; Wheezing diminished sv1 Outcome: 01:59 Decision to Hospitalize by Provider. kb 04:07 Admitted to Med/surg accompanied by tech. sv1 04:07 Condition: stable 04:07 Instructed on the need for admit. 04:46 Patient left the ED. tw5 Signatures: Dispatcher [employer] EDMary Garcia, LINUX VMWARE ADMINISTRATOR-C LINUX VMWARE ADMINISTRATOR-CkSpencer Brumfield ds4 Haley Fox tw5 Giorgi Camargo RN RN sv1 Corrections: (The following items were deleted from the chart) 00:59 00:55 BP 101 / 45; Pulse 55bpm; Resp 14bpm; Pulse Ox 95%; ds4 ds4
--- NOTE | 2021-10-08 02:00 | EDPHYS ---
Physician Documentation [facility] Name: Dwight Nolasco Age: 76 yrs Sex: Male : 1945 Arrival Date: 10/07/2021 Time: 22:27 Bed 15 Private MD: ED Physician Prosper Hensley HPI: 10/08 00:09 This 76 yrs old Male presents to ER via Unassigned with complaints of cough. kb 00:09 Severity of symptoms: At their worst the symptoms were mild, in the emergency kb department the symptoms are unchanged. Modifying factors: The symptoms are alleviated by nothing, the symptoms are aggravated by nothing. Associated signs and symptoms: The patient has no apparent associated signs or symptoms. The patient has not experienced similar symptoms in the past. The patient has not recently seen a physician. pen[facility]entiary staff reports pt was sent for a eval for covid pneumonia. Pt has no complaints. 01:15 The patient or guardian reports sent for covid eval per EMS. [facility] [place] [facility] staff kb reported pt tested positive for covid last night and they have closed their covid unit. Onset: The symptoms/episode began/occurred yesterday. Historical: - Home Meds: 01:01 amiodarone 400 mg Oral tab twice a day [Active]; amlodipine 10 mg tab once daily sv1 [Active]; atorvastatin 80 mg Oral tab 1 tab nightly [Active]; Betapace 40mg Oral tab 2 times per day [Active]; Depakote 125 mg Oral TbEC 2 tabs 3 times per day [Active]; Depakote Sprinkles 125 mg Oral cpSP 2 caps every 8 hours [Active]; duloxetine 20 mg Oral cpDR daily [Active]; fenofibrate 54 mg Oral tab once daily [Active]; furosemide 40 mg Oral tab once daily [Active]; gabapentin 800 mg Oral tab 1 tab 3 times per day [Active]; glimepiride 1 mg Oral tab once daily [Active]; glimepiride 2 mg Oral tab 1 tab once daily [Active]; guaifenesin 100 mg/5 mL Oral liqd evry 8 hrs PRN for cough [Active]; hydrocodone-acetaminophen 5-325 mg Oral tab BID [Active]; lisinopril 20 mg Oral tab once daily [Active]; metformin 850 mg Oral tab 1 tab 2 times per day [Active]; Milk of Magnesia 400 mg/5 mL Oral susp 30 mL every 6hrs PRN for constipation [Active]; multivitamin 1 tab daily Oral [Active]; Nitrostat 0.4 mg SL subl [Active]; Xarelto 20 mg Oral tab 1 tab once daily [Active]; - PMHx: 01:01 atrial flutter; Cellulitis; cognitive communication deficit; CVA; Dementia; DYSPHAGIA; sv1 Depression; hemiplegia; Hyperlipidemia; Hypertension; osteoarthritis; Type 2 Diabetes; - Immunization history:: Adult Immunizations Client reports receiving the 2nd dose of the Covid vaccine. - Social history:: Smoking status: unknown. ROS: 00:10 Constitutional: Negative for fever, chills, and weight loss. kb 00:10 All other systems are negative. Exam: 00:08 Constitutional: This is a well developed, well nourished patient who is awake, alert, kb and in no acute distress. Head/Face: Normocephalic, atraumatic. ENT: Moist Mucous membranes Cardiovascular: Regular rate and rhythm with a normal S1 and S2. No gallops, murmurs, or rubs. No pulse deficits. Skin: Warm, dry with normal turgor. Normal color. MS/ Extremity: Pulses equal, no cyanosis. Neurovascular intact. Full, normal range of motion. 00:08 Respiratory: the patient does not display signs of respiratory distress, Respirations: normal, Breath sounds: wheezing: expiratory that is mild, that is moderate, is scattered. 00:08 Neuro: Exam negative for acute changes. 01:17 Constitutional: The patient appears unkempt. kb Vital Signs: 10/07 20:30 BP 146 / 63; Pulse 56; Resp 18; Temp 98.3; Pulse Ox 98% 00 lpm ; sv1 10/08 00:55 BP 101 / 45; Pulse 55; Resp 14; Temp 98.1(O); Pulse Ox 95% ; ds4 02:50 BP 146 / 63; Pulse 60; Resp 18; Pulse Ox 96% ; sv1 04:07 BP 149 / 63; Pulse 58; Resp 16; Temp 98.4; Pulse Ox 95% 0 lpm ; sv1 MDM: 10/07 22:28 Patient medically screened. kb 10/08 00:08 Data reviewed: vital signs, nurses notes. Data interpreted: Pulse oximetry: on room air kb is 98 %. Interpretation: normal. 01:57 Counseling: I had a detailed discussion with the patient and/or guardian regarding: the kb historical points, exam findings, and any diagnostic results supporting the discharge/admit diagnosis, radiology results, the need for further work-up and treatment in the hospital. 02:01 ED course: After neb treatment, wheezing became worse, diffuse. Will admit for kb steroids, nebs and continued monitoring. . 02:02 Physician consultation: Valeriy VIDAL was contacted at 02:02, regarding admission, to the telemetry unit. patient's condition, and will see patient in ED. 10/07 22:32 Order name: COVID-19 SARS RT PCR (Document "Date of Onset" if Symptomatic) kb 10/07 22:33 Order name: SARS-COV-2 RT PCR; Complete Time: 00:17 EDMS 10/08 02:00 Order name: COVID-19 SARS RT PCR (Document "Date of Onset" if Symptomatic) kb 10/08 02:00 Order name: BMP kb 10/08 02:00 Order name: Blood Culture Adult (2) kb 10/08 02:00 Order name: C-Reactive Protein kb 10/08 02:00 Order name: CBC with Diff kb 10/08 02:00 Order name: Ferritin kb 10/08 02:00 Order name: LFT's kb 10/08 02:00 Order name: Lactate kb 10/08 02:00 Order name: Lipase kb 10/08 02:00 Order name: PT-INR kb 10/08 02:00 Order name: Procalcitonin kb 10/08 02:00 Order name: Ptt, Activated kb 10/07 22:28 Order name: Chest Single View XRAY kb 10/08 02:00 Order name: Troponin HS kb 10/08 02:00 Order name: EKG; Complete Time: 02:02 kb 10/08 02:00 Order name: Cardiac monitoring; Complete Time: 04:09 kb 10/08 02:00 Order name: Droplet/Contact Precautions; Complete Time: 02:38 kb 10/08 02:00 Order name: EKG - Nurse/Tech; Complete Time: 04:09 kb 10/08 02:00 Order name: IV Start; Complete Time: 02:39 kb 01/13 02:01 Order name: Basic Metabolic Panel EDMS 10/08 02:01 Order name: Blood Culture EDMS 10/08 02:01 Order name: C-Reactive Protein EDMS 10/08 02:14 Order name: SARS-COV-2 RT PCR EDMS 10/08 02:00 Order name: Labs collected and sent; Complete Time: 02:39 kb 10/08 02:00 Order name: O2 Per Protocol; Complete Time: 02:39 kb 10/08 02:00 Order name: O2 Sat Monitoring; Complete Time: 04:09 kb Administered Medications: 01:00 Drug: Xopenex (levalbuterol) 1.25 mg Route: Inhalation; sv1 01:00 Drug: AtroVENT (ipratropium) Aerosol 0.5 mg Route: Inhalation; sv1 01:36 Drug: Albuterol 2.5 mg Route: Inhalation; sv1 02:47 Drug: SOLU-Medrol (methylPrednisoLONE) 60 mg Route: IVP; Site: left hand; sv1 04:09 Follow up: Response: No adverse reaction sv1 04:14 Follow up: Response: No adverse reaction; Wheezing diminished sv1 Disposition: 08:02 Co-signature as Attending Physician, Prosper Hensley MD I agree with the assessment and sp3 plan of care. Disposition Summary: 10/08/21 01:59 Hospitalization Ordered Hospitalization Status: Observation kb Provider: [facility] Condition: Stable kb Problem: new kb Symptoms: are unchanged kb Bed/Room Type: Standard Room Assignment: 229(10/08/21 03:59) eb1 Diagnosis - Coronavirus infection, unspecified kb - Viral pneumonia, unspecified kb Forms: - Medication Reconciliation Form kb - SBAR form kb Signatures: Dispatcher [employer] EDMS Mary Arroyo, DIGITAL ACCOUNT SUPERVISOR-C LUIS-Alina Curtis RN RN eb1 Prosper Hensley MD MD sp3 Giorgi Camargo RN RN sv1 Corrections: (The following items were deleted from the chart) 00:10 00:09 penitentiary staff reports pt has a cough and they sent him in to check for covid kb pneumonia. . kb 01:05 00:09 penitentiary staff reports pt has a cough and they sent him in to check for covid kb pneumonia. Pt has no complaints. kb :16 00:09 The patient or guardian reports cough, that is intermittent, described as mild, kbkb :16 00:09 Onset: The symptoms/episode began/occurred last week, kb kb :16 00:09 penitentiary staff reports pt was sent for a eval for covid pneumonia. Pt has no kb complaints. kb :17 00:08 Constitutional: This is a well developed, well nourished patient who is awake, kb alert, and in no acute distress. Head/Face: Normocephalic, atraumatic. ENT: Moist Mucous membranes Cardiovascular: Regular rate and rhythm with a normal S1 and S2. No gallops, murmurs, or rubs. No pulse deficits. Skin: Warm, dry with normal turgor. Normal color. MS/ Extremity: Pulses equal, no cyanosis. Neurovascular intact. Full, normal range of motion. kb :17 00:10 Respiratory: Positive for cough, Negative for dyspnea on exertion, hemoptysis, kb orthopnea, pleurisy, shortness of breath, sputum production, wheezing, kb 01:57 01:31 Counseling: I had a detailed discussion with the patient and/or guardian kb regarding: the historical points, exam findings, and any diagnostic results supporting the discharge/admit diagnosis, lab results, radiology results, the need for outpatient follow up, a family practitioner, to return to the emergency department if symptoms worsen or persist or if there are any questions or concerns that arise at home, kb 01:57 01:31 ED course: Pt is afebrile, nontoxic in appearance, no resp distress, oxygen sat kb 99% on room air. Pt has no complaints. . kb 02:01 02:01 SARS-COV-2 RT PCR ordered. EDMS EDMS 03:59 01:59 kb eb1
[2021-10-08] MEDS ORDERED: METHYLPREDNISOLONE 125 MG INJ ONE (02:45)
[2021-10-08 03:08] LABS: Absolute Lymphocytes (CBC) 3.9 K/uL (0.7-4.9); Lymphocytes % 35.9 % (15.3-44.8); MPV 8.7 fL (7.6-11.3); RBC Red Blood Cell Count 4.76 M/uL (4.33-5.43)
[2021-10-08 03:10] LABS: Protime INR 1.03
[2021-10-08 03:32] LABS: Albumin 3.4 g/dL (3.4-5.0); Bilirubin Direct 0.1 mg/dL (0-0.2); Bilirubin Total 0.4 mg/dL (0.2-1.0); C-Reactive Protein 3.82 mg/L (<3.00); Ferritin 103.7 ng/mL (26-388); Potassium 3.8 mmol/L (3.5-5.1); Protein, Total 7.6 g/dL (6.4-8.2); Troponin High Sensitivity 13.9 pg/mL (<58.9)
--- NOTE | 2021-10-08 03:51 | P.HP ---
Certification for Inpatient Patient admitted to: Inpatient With expected LOS: <2 Midnights Patient will require the following post-hospital care: None Practitioner: I am a practitioner with admitting privileges, knowledge of patient current condition, hospital course, and medical plan of care. Services: Services provided to patient in accordance with Admission requirements found in Title 42 Section 412.3 of the Code of Federal Regulations Patient History Date of Service: 10/08/21 Reason for admission: pneumonia History of Present Illness: Mr. Nolasco is a 76 yo M with histoyr of CVA with R sided hemiplegia, dementia, T2DM, HTN, HLD, OA who was sent in from detention for wheezing and crackles. Per detention, he was COVID+ but he has had two COVID- results here. He has a cough and audible wheeze and crackles. He is a poor historian, but says that he used to smoke. CXR shows atelectasis vs infiltrate in bilateral lower lobes. WBC 11 BUN 32 Cr 1.37 GFR 51 Glu 157 AST 46 Lactate 2.1 Allergies No Known Allergies Allergy (Verified 11/07/14 20:31) Home Medications: Hydrocodone Bit/Acetaminophen [Hydrocodon-Acetaminophen 5-325] 1 tab PO BID 07/23/14 Metformin HCl 1 tab PO BID 07/23/14 Fenofibrate [Lofibra] 54 mg PO DAILY 11/07/14 Furosemide [Lasix] 40 mg PO DAILY 07/04/19 Atorvastatin Calcium [Lipitor] 80 mg PO BEDTIME 08/28/20 Divalproex [Depakote Sprinkle*] 250 mg PO TID 08/28/20 Duloxetine HCl 20 mg PO DAILY 08/28/20 Gabapentin [Neurontin] 800 mg PO TID 08/28/20 Glimepiride [Amaryl] 3 mg PO DAILY 08/28/20 Magnesium Hydroxide [Milk of Magnesia] 30 ml PO Q6HP PRN 08/28/20 Multivitamin [Daily Multiple Vitamin] 1 tab PO DAILY 08/28/20 Nitroglycerin [Nitrostat*] 1 tab SL SEECOM 08/28/20 Rivaroxaban [Xarelto] 20 mg PO DAILY 08/28/20 guaiFENesin [Scot-Tussin Expectorant] 100 mg PO Q8HP PRN 08/28/20 Amiodarone HCl [Pacerone] 400 mg PO BID #60 tablet 08/29/20 Amlodipine [Norvasc*] 10 mg PO DAILY #30 tab 08/29/20 lisinopriL [Prinivil] 20 mg PO DAILY 11/04/20 - Past Medical/Surgical History Diabetic: Yes -: HTN -: CVA -: Dementia -: neuropathy -: aflutter -: osteoarthritis -: type 2 dm -: hyperlipidemia -: depression -: covid -: hemiplegia rue - Social History Smoking Status: Unknown if ever smoked Alcohol use: No CD- Drugs: No Caffeine use: Yes Place of Residence: Home Review of Systems is unable to be obtained General: Unremarkable Eyes: Unremarkable ENT: Unremarkable Respiratory: Cough, Wheezing Cardiovascular: Unremarkable Gastrointestinal: Unremarkable Genitourinary: Unremarkable Musculoskeletal: Unremarkable Integumentary: Unremarkable Neurological: Confusion Lymphatics: As per HPI Physical Examination - Physical Exam General: Alert, In no apparent distress, Demented HEENT: Atraumatic, PERRLA, Mucous membr. moist/pink, EOMI, Sclerae nonicteric Neck: Supple, 2+ carotid pulse no bruit, No LAD, Without JVD or thyroid abnormality Respiratory: Diminished, Expiratory wheezes, Rhonchi/gurgles Cardiovascular: No edema, Regular rate/rhythm, Normal S1 S2 Gastrointestinal: Normal bowel sounds, No tenderness Musculoskeletal: No tenderness Integumentary: No rashes Neurological: Normal strength at 5/5 x4 extr, Normal tone, Abnormal speech, Dementia Lymphatics: No axilla or inguinal lymphadenopathy - Studies Laboratory Data (last 24 hrs) 10/08/21 02:20: PT 11.9, INR 1.03, APTT 35.1 10/08/21 02:20: WBC 11.00 H, Hgb 14.0, Hct 43.0, Plt Count 330 10/08/21 02:20: Sodium 142, Potassium 3.8, BUN 32 H, Creatinine 1.37 H, Glucose 157 H, Total Bilirubin 0.4, AST 46 H, ALT 73, Alkaline Phosphatase 93, Lipase 17 6 Assessment and Plan - Problems (Diagnosis) (1) HLD (hyperlipidemia) Current Visit: Yes Status: Chronic Qualifiers: Hyperlipidemia type: unspecified Qualified Code(s): E78.5 - Hyperlipidemia, unspecified (2) T2DM (type 2 diabetes mellitus) Current Visit: Yes Status: Chronic Qualifiers: Diabetes mellitus fpc insulin use: without terminologist use Diabetes mellitus complication status: without complication Qualified Code(s): E11.9 - Type 2 diabetes mellitus without complications (3) HTN (hypertension) Current Visit: Yes Status: Chronic Qualifiers: Hypertension type: primary hypertension Qualified Code(s): I10 - Essential (primary) hypertension (4) Pneumonia Current Visit: Yes Status: Acute Qualifiers: Pneumonia type: due to unspecified organism Laterality: unspecified laterality Lung location: unspecified part of lung Qualified Code(s): J18.9 - Pneumonia, unspecified organism (5) CVA (cerebral vascular accident) Current Visit: No Status: Chronic Qualifiers: CVA mechanism: unspecified Qualified Code(s): I63.9 - Cerebral infarction, unspecified (6) Vascular dementia Current Visit: No Status: Chronic Qualifiers: Dementia behavioral disturbance: without behavioral disturbance Qualified Code(s): F01.50 - Vascular dementia without behavioral disturbance - Plan continue IV ceftriaxone and azithromycin continue breathing treatments, O2 as needed continue gentle IV fluid hydration continue antitussives and decongestants continue prednisone reconcile and continue home medication DVT ppx Discharge Plan: Senior Living Plan to discharge in: 48 Hours - Advance Directives Does patient have a Living Will: No Does patient have a Durable POA for Healthcare: No - Code Status/Comfort Care Code Status Assessed: Yes (full code ) Critical Care: No Time Spent Managing Pts Care (In Minutes): 70
[2021-10-08] MEDS: AZITHROMYCIN IV 500 MG in NA CHLORIDE 0.9% 250 ML IVPB SCH ×4 (05:11→15:01)
[2021-10-08] MEDS ORDERED: ALBUTEROL 2.5 MG/3 ML NEB SOL NEB PRN (05:11)
[2021-10-08] MEDS ORDERED: ACETAMINOPHEN 500 MG TAB PO PRN (05:11)
[2021-10-08] MEDS ORDERED: BENZONATATE 100 MG CAP PO PRN (05:11)
[2021-10-08] MEDS ORDERED: ONDANSETRON 4 MG/2 ML VIAL IV PRN (05:11)
[2021-10-08] MEDS ORDERED: IPRATROPIUM BROM 0.5MG/2.5ML NEB PRN (05:11)
[2021-10-08] MEDS: CEFTRIAXONE 1,000 MG in NA CHLORIDE 0.9% 50 ML IVPB SCH ×2 (05:42→09:26)
[2021-10-08] MEDS: NA CHLORIDE 0.9% 1,000 ML IV SCH ×2 (05:43→17:31)
[2021-10-08] MEDS ORDERED: ENOXAPARIN 40 MG/0.4 ML SQ SCH (09:00)
[2021-10-08] MEDS ORDERED: guaiFENesin 100 MG/5 ML UCUP PO PRN (09:08)
[2021-10-08] MEDS: GUAIFENESIN 600 MG SA TAB PO SCH ×2 (09:26→20:09)
[2021-10-08] MEDS: predniSONE 20 MG TAB PO SCH ×2 (09:26→20:09)
[2021-10-08] MEDS: INSULIN -REGULAR HUMAN 50 UNIT/0.5 ML ML SQ SCH ×4 (09:35→20:10)
[2021-10-08] MEDS ORDERED: POTASSIUM CL SA 10 MEQ TAB PO ONE (12:00)
[2021-10-08] MEDS: DULOXETINE 20 MG CAP PO SCH (12:59)
[2021-10-08] MEDS: lisinopriL 20 MG TAB PO SCH (12:59)
[2021-10-08] MEDS: AMIODARONE HCL 200 MG TAB PO SCH ×2 (13:01→20:09)
[2021-10-08] MEDS: FUROSEMIDE 40 MG TABLET PO SCH (13:02)
--- NOTE | 2021-10-08 13:04 | RAD REPORT ---
EXAM DESCRIPTION: Chest Single View CLINICAL HISTORY: 76 years Male COUGH COMPARISON: None TECHNIQUE: AP view of the chest was obtained. FINDINGS: Cardiac silhouette is normal in size. Central vessels are not increased. Decreased inspira tion. Airspace opacities lower lungs bilaterally. No effusions bilaterally. No pneumothorax. Marked degenerative change left shoulder. IMPRESSION: Decreased inspiration with atelectatic change versus infiltrate lower lungs bilaterally. Electronically signed by: Stephanie Palma MD 10/07/2021 11:32 PM HOME CARE ATTENDANT Due to temporary technical issues with the PACS/Fluency reporting system, reports are being signed by the in house radiologist without review as a courtesy to ensure prompt reporting. The interpreting r adiologist is fully responsible for the content of the report.
--- NOTE | 2021-10-08 13:42 | P.PN ---
Date of Service: 10/08/21 Patient seen and examined. He appears comfortable, appears to be at baseline, awake and interactive. Not in distress. No sepsis Healthcare associated pneumonia. Patient with a history of aphasia. I suspect dysphagia. Plan: Continue antibiotics. Speech therapy consult for swallow evaluation. Resume home medications. Insulin sliding scale and Lantus insulin for glucose management.
[2021-10-08] MEDS: GABAPENTIN 400 MG CAP PO SCH ×2 (17:31→20:07)
[2021-10-08] MEDS: HYDROCODONE/APAP 5/325 MG TAB PO SCH (20:07)
[2021-10-08] MEDS: DIVALPROEX NA 125 MG CAP PO SCH (20:07)
[2021-10-08] MEDS ORDERED: HOME MED 1 EA UNK (Insulin Glargine,Hum.Rec.Anlog [Lantus Solostar] 100 UNIT/ML Insuln.Pen SQ SCH (21:00)
[2021-10-08] MEDS ORDERED: ATORVASTATIN 80 MG TAB PO SCH (21:00)
[2021-10-08] MEDS ORDERED: INSULIN GLARGINE 100 UNIT/ML SQ SCH (21:00)
[2021-10-08] MEDS ORDERED: AMLODIPINE 10 MG TAB PO SCH (21:00)
[2021-10-09 05:06] VITALS: BMI 34.9
[2021-10-09] MEDS: NA CHLORIDE 0.9% 1,000 ML IV SCH ×2 (06:16→07:51)
[2021-10-09 06:39] LABS: Absolute Lymphocytes (CBC) 1.8 K/uL (0.7-4.9); Hematocrit 41.7 % (39.6-49.0); Lymphocytes % 14.7 % (15.3-44.8); MPV 8.5 fL (7.6-11.3); RBC Red Blood Cell Count 4.62 M/uL (4.33-5.43)
[2021-10-09] MEDS: INSULIN -REGULAR HUMAN 50 UNIT/0.5 ML ML SQ SCH ×2 (07:30→12:37)
[2021-10-09 07:32] LABS: Albumin 3.1 g/dL (3.4-5.0); Bilirubin Total 0.3 mg/dL (0.2-1.0); Magnesium 2.8 mg/dL (1.8-2.4); Potassium 4.2 mmol/L (3.5-5.1); Thyroid Stimulating Hormone 1.44 uIU/mL (0.360-3.740)
[2021-10-09] MEDS ORDERED: CEFTRIAXONE 1000 MG/VIAL ONE (08:55)
[2021-10-09] MEDS ORDERED: NA CHLORIDE 0.9% 50 ML ONE (08:57)
[2021-10-09] MEDS: AMIODARONE HCL 200 MG TAB PO SCH (09:00)
[2021-10-09] MEDS ORDERED: MULTIVIT W/ MINERAL TAB PO SCH (09:00)
[2021-10-09] MEDS ORDERED: RIVAROXABAN 20 MG TABLET PO SCH (09:00)
[2021-10-09] MEDS ORDERED: FENOFIBRATE 54 MG PO SCH (09:00)
[2021-10-09] MEDS: CEFTRIAXONE 1,000 MG in NA CHLORIDE 0.9% 50 ML IVPB SCH (09:00)
[2021-10-09] MEDS: DIVALPROEX NA 125 MG CAP PO SCH (09:01)
[2021-10-09] MEDS: lisinopriL 20 MG TAB PO SCH (09:01)
[2021-10-09] MEDS: GUAIFENESIN 600 MG SA TAB PO SCH (09:01)
[2021-10-09] MEDS: predniSONE 20 MG TAB PO SCH (09:01)
[2021-10-09] MEDS: GABAPENTIN 400 MG CAP PO SCH ×2 (09:01→13:34)
[2021-10-09] MEDS: HYDROCODONE/APAP 5/325 MG TAB PO SCH (09:01)
[2021-10-09] MEDS: DULOXETINE 20 MG CAP PO SCH (09:01)
[2021-10-09] MEDS: FUROSEMIDE 40 MG TABLET PO SCH (09:01)
[2021-10-09] MEDS: AZITHROMYCIN IV 500 MG in NA CHLORIDE 0.9% 250 ML IVPB SCH (09:57)
[2021-10-09 10:02] VITALS: O2SAT 96
--- NOTE | 2021-10-09 10:49 | P.DS ---
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 Per long-term, he was COVID+ but he has had two COVID- results here. CXR showed atelectasis vs infiltrate in bilateral lower lobes. WBC 11 BUN 32 Cr 1.37 GFR 51 Glu 157 AST 46 Lactate 2.1. Patient admitted for further management. Hospital Course: Patient admitted to the medical floor and treated with IV Rocephin and Zithromax for pneumonia. Also treated with bronchodilators. His respiratory status improved with treatment. Patient became asymptomatic. He had no problem with swallowing and no aspiration. No fever. He had good oral intake. COVID PCR test x2 were all negative. Patient clinically stable for discharge. He is prescribed oral Levaquin to continue treatment for pneumonia. Vital Signs/Physical Exam: Temp Pulse Resp BP Pulse Ox 97.4 F 57 18 130/60 98 10/09/21 08:00 10/09/21 09:01 10/09/21 08:00 10/09/21 09:01 10/09/21 08:00 General: Alert, In no apparent distress HEENT: Mucous membr. moist/pink Neck: JVD not distended Respiratory: Clear to auscultation bilaterally, Normal air movement Cardiovascular: Regular rate/rhythm, Normal S1 S2 Gastrointestinal: Soft and benign, Non-distended Musculoskeletal: No swelling Integumentary: No rashes Neurological: Other (Right-sided weakness-old) Laboratory Data at Discharge: WBC 12.00 K/uL (4.3-10.9) H 10/09/21 06:18 Hgb 13.5 g/dL (13.6-17.9) L 10/09/21 06:18 Hct 41.7 % (39.6-49.0) 10/09/21 06:18 Plt Count 334 K/uL (152-406) 10/09/21 06:18 PT 11.9 SECONDS (9.5-12.5) 10/08/21 02:20 INR 1.03 10/08/21 02:20 APTT 35.1 SECONDS (24.3-36.9) 10/08/21 02:20 Sodium 142 mmol/L (136-145) 10/09/21 06:18 Potassium 4.2 mmol/L (3.5-5.1) 10/09/21 06:18 BUN 48 mg/dL (7-18) H 10/09/21 06:18 Creatinine 1.51 mg/dL (0.55-1.3) H 10/09/21 06:18 Glucose 213 mg/dL (74-106) H 10/09/21 06:18 Phosphorus 3.0 mg/dL (2.5-4.9) 10/09/21 06:18 Magnesium 2.8 mg/dL (1.8-2.4) H D 10/09/21 06:18 Total Bilirubin 0.3 mg/dL (0.2-1.0) 10/09/21 06:18 AST 44 U/L (15-37) H 10/09/21 06:18 ALT 72 U/L (12-78) 10/09/21 06:18 Alkaline Phosphatase 79 U/L (45-117) 10/09/21 06:18 Triglycerides 104 mg/dL (<150) 10/09/21 06:18 Cholesterol 160 mg/dL (<200) 10/09/21 06:18 HDL Cholesterol 64 mg/dL (40-60) H 10/09/21 06:18 Cholesterol/HDL Ratio 2.50 10/09/21 06:18 Lipase 176 U/L (73-393) 10/08/21 02:20 Home Medications: Hydrocodone Bit/Acetaminophen [Hydrocodon-Acetaminophen 5-325] 1 tab PO BID 07/23/14 Fenofibrate [Lofibra] 54 mg PO DAILY 11/07/14 Furosemide [Lasix] 40 mg PO DAILY 07/04/19 Atorvastatin Calcium [Lipitor] 80 mg PO BEDTIME 08/28/20 Divalproex [Depakote Sprinkle*] 250 mg PO BID 08/28/20 Duloxetine HCl 20 mg PO DAILY 08/28/20 Gabapentin [Neurontin] 800 mg PO TID 08/28/20 Magnesium Hydroxide [Milk of Magnesia] 30 ml PO Q6HP PRN 08/28/20 Multivitamin [Daily Multiple Vitamin] 1 tab PO DAILY 08/28/20 Nitroglycerin [Nitrostat*] 1 tab SL SEECOM 08/28/20 Rivaroxaban [Xarelto] 20 mg PO DAILY 08/28/20 guaiFENesin [Scot-Tussin Expectorant] 5 ml PO Q8HP PRN 08/28/20 Amlodipine [Norvasc*] 10 mg PO DAILY #30 tab 08/29/20 lisinopriL [Prinivil*] 20 mg PO DAILY 11/04/20 Acetaminophen [Tylenol] 650 mg PO Q6H PRN 10/08/21 Amiodarone HCl 100 mg PO BID 10/08/21 Insulin Glargine,Hum.rec.anlog [Lantus Solostar] 10 unit SQ BEDTIME 10/08/21 levoFLOXacin [Levaquin] 750 mg PO DAILY #5 tab 10/09/21 predniSONE [Prednisone*] 20 mg PO BID #10 tab 10/09/21 New Medications: levoFLOXacin [Levaquin] 750 mg PO DAILY #5 tab predniSONE [Prednisone*] 20 mg PO BID #10 tab Diet: ADA Activity: Fall precautions Followup: Unknown,U [Primary Care Provider] - 1 Week
[2021-10-09 17:19] VITALS: BP 139/63; TEMP 97.4
== END 2021-10-09 17:21 | DRG 194 ==
LOC: ER 22:02 → ERHOLD 10-08 03:55 → 2ND 10-08 04:34
PROVIDERS: ADMIT Internal Medicine; ATTEND Internal Medicine
DX: J18.9 Pneumonia, unspecified organism (principal); I69.351 Hemiplegia and hemiparesis following cerebral infarction affecting right dominant side; E11.9 Type 2 diabetes mellitus without complications; F01.50 Vascular dementia, unspecified severity, without behavioral disturbance, psychotic disturbance, mood disturbance, and anxiety; E78.5 Hyperlipidemia, unspecified; R13.10 Dysphagia, unspecified; Z87.891 Personal history of nicotine dependence; Z20.822 Contact with and (suspected) exposure to COVID-19
CPT/HCPCS: 36415; 71045; 80048; 80053; 80061; 80076; 82728; 82947; 83605; 83690; 83735; 84100; 84145; 84439; 84443; 84484; 85025; 85610; 85730; 86140; 87040; 87205; 93005; 94760; 96374; 99285; J0456; J1650; J2930; J7030; J7050; J7512; U0003

== ENCOUNTER 2025-05-13 03:20 | Emergency (ER) | payer OTHER ==
--- NOTE | 2025-05-13 04:59 | RAD REPORT ---
EXAM DESCRIPTION: Knee Right 2 View RadLex: XR KNEE 1-2 VIEWS RIGHT CLINICAL HISTORY: 80 years Male, fall trauma COMPARISON: None. FINDINGS: 2 views of the right knee. Osseous demineralization. No acute fracture or dislocation. Moderate to ma rked tricompartmental degenerative changes with joint space narrowing and bony spurring. Chondrocalcinosis raises the possibility of CPPD. No significant joint effusion. Extensive vascular c alcifications. IMPRESSION: 1. Osseous demineralization without acute fracture identified. 2. Moderate to marked tricompartmental degenerative changes. Electronically signed by: Debbie Lui MD 05/13/2025 04:36 AM CDT RP Due to temporary technical issues with the PACS/NGI reporting system, reports are being felisha d by the in-house radiologist without review as a courtesy to ensure prompt reporting the interpreting radiologist is fully responsible for the content of the report. Transcribed Date/Time: 05/13/2025 4:59 AM
--- NOTE | 2025-05-13 05:19 | ER ---
Nurse's Notes [facility] Name: Dwight Nolasco Age: 80 yrs Sex: Male : 1945 Arrival Date: 05/13/2025 Time: 03:20 Bed 19 Private MD: Diagnosis: Mechanical fall, closed head injury, forehead abrasion Presentation: 05/13 03:21 Chief complaint: EMS states: COMING FROM [facility], WAS FOUND ON THE FLOOR ha1 BY NURSE AT THE FACILITY. PAIN ON THE RIGHT LEG, ABRASION TO FOREHEAD AND OCCIPITAL AREA. UNKNOWN LOC. ON BLOOD THINNERS. 03:21 Coronavirus screen: Client denies travel out of the [place] in the last 14 days. Ebola ha1 Screen: No symptoms or risks identified at this time. Initial Sepsis Screen: Does the patient meet any 2 criteria? No. Patient's initial sepsis screen is negative. Does the patient have a suspected source of infection? No. Patient's initial sepsis screen is negative. Risk Assessment: Do you want to hurt yourself or someone else? Patient reports no desire to harm self or others. Onset of symptoms was May 13, 2025. 03:21 Method Of Arrival: EMS: [facility] ha1 03:21 Acuity: BEVERLY 3 ha1 03:21 Care prior to arrival: None. Mechanism of Injury: Fall. Trauma event details: Injury ha1 occurred in the [facility]. Triage Assessment: 03:35 General: Appears comfortable, Behavior is calm, cooperative. Pain: Complains of pain in ha1 right leg Quality of pain is described as aching. Historical: - Allergies: 03:35 No Known Allergies; ha1 - Home Meds: 03:35 amiodarone 100 mg Oral tablet 1 tab daily [Active]; amlodipine 10 mg tab 1 tab once ha1 daily [Active]; atorvastatin 80 mg Oral tab 1 tab nightly [Active]; Depakote 125 mg Oral TbEC 2 tabs 3 times per day [Active]; duloxetine 20 mg Oral cpDR daily [Active]; hydrocodone-acetaminophen 5-325 mg Oral tab BID [Active]; Depakote Sprinkles 125 mg Oral cpSP 2 caps every 8 hours [Active]; gabapentin 800 mg Oral tab 1 tab 3 times per day [Active]; lisinopril 20 mg Oral tab 1 tab once daily [Active]; Milk of Magnesia 400 mg/5 mL Oral susp 30 mL every 6hrs PRN for constipation [Active]; glimepiride 1 mg Oral tab once daily [Active]; fenofibrate 54 mg Oral tab once daily [Active]; guaifenesin 100 mg/5 mL Oral liqd evry 8 hrs PRN for cough [Active]; Xarelto oral [Active]; metformin 850 mg Oral tab 1 tab 2 times per day [Active]; glimepiride 2 mg Oral tab 1 tab once daily [Active]; furosemide 40 mg Oral tab once daily [Active]; - PMHx: 03:35 atrial flutter; Cellulitis; cognitive communication deficit; CVA; Dementia; Depression; ha1 DYSPHAGIA; hemiplegia; Hyperlipidemia; Hypertension; osteoarthritis; Type 2 Diabetes; - Immunization history:: Adult Immunizations unknown. - Infectious Disease History:: Denies. - Social history:: Smoking status: unknown. Screenin:21 [facility] ED Fall Risk Assessment (Adult) History of falling in the last 3 months, ha1 including since admission Yes- single mechanical fall (1 pt) Confusion or Disorientation Yes (5 pts) Intoxicated or Sedated No (0 pts) Impaired Gait Yes (1 pt) Mobility Assist Device Used Yes (1 pt) Altered Elimination Yes (1 pt) Score/Fall Risk Level 3 or more points = High Risk Oriented to surroundings, Maintained a safe environment, Educated pt \T\ family on fall prevention, incl call for assistance when getting out of bed, Hourly rounding (assess needs \T\ fall precautionary measures) done, Implemented a Fall Risk Plan of Care. Abuse screen: Denies threats or abuse. Denies injuries from another. Nutritional screening: No deficits noted. Tuberculosis screening: No symptoms or risk factors identified. Primary Survey: 03:21 NO uncontrolled hemorrhage observed. A: The client is awake and alert. The airway is ha1 patent. Breathing/Chest: Spontaneous respiratory effort, equal unlabored respirations, breath sounds clear bilaterally, regular pattern, symmetrical chest rise and fall. Circulation: No external hemorrhage present. Regular and strong central pulse, skin warm/dry/normal color. Disability Pupils are equal, round, reactive to light and accommodation. Assessment: 03:21 Reassessment: SEE TRIAGE ASSESSMENT. ha1 04:10 Reassessment: GOING TO CT. ha1 04:30 Reassessment: BACK FROM CT. ha1 05:00 Reassessment: Patient and/or family updated on plan of care and expected duration. Pain ha1 level reassessed. 05:40 Reassessment: Nurse to nurse report given to Rober. nurse stated she will arrange ha1 transportation. 06:30 Reassessment: discharge awaiting on transportation. ha1 06:57 Reassessment: eyes closed. Respiratory: Airway is patent Respiratory effort is even, ha1 unlabored, Respiratory pattern is regular, symmetrical. Vital Signs: 03:21 BP 120 / 60; Pulse 105; Resp 17 S; Temp 98.9(A); Pulse Ox 95% on R/A; Weight 101.6 kg; ha1 Height 5 ft. 11 in. ; 05:50 BP 117 / 72; Pulse 109; Resp 18; Pulse Ox 95% on R/A; ha1 06:45 BP 125 / 77; Pulse 109; Resp 17 S; Pulse Ox 97% on R/A; ha1 03:21 Body Mass Index 31.24 (101.60 kg, 180.34 cm) ha1 Po Coma Score: 03:21 Eye Response: spontaneous(4). Motor Response: obeys commands(6). Verbal Response: ha1 confused(4). Total: 14. Trauma Score (Adult): 03:21 Eye Response: spontaneous(1); Verbal Response: confused(1); Motor Response: obeys ha1 commands(2); Systolic BP: > 89 mm Hg(4); Respiratory Rate: 10 to 29 per min(4); Wickliffe Score: 14; Trauma Score: 12 ED Course: 03:21 Patient arrived in ED. [email or web address] 03:21 Patient has correct armband on for positive identification. Placed in gown. Bed in low ha1 position. Call light in reach. Side rails up X2. 03:21 Patient maintains SpO2 saturation greater than 95% on room air. ha1 03:22 Prosper Hensley MD is Attending Physician. sp3 03:34 Triage completed. ha1 03:54 CT Head C Spine In Process Unspecified. EDMS 04:14 Knee Right 2 View XRAY In Process Unspecified. EDMS 04:49 Thermoregulation: warm blanket given to patient. ha1 05:42 Leena Kinney, RN is Primary Nurse. ha1 05:59 Provided Education on: follow ups , fall prevention . ha1 05:59 No provider procedures requiring assistance completed. ha1 06:50 Arm band placed on right wrist. ha1 07:07 Patient did not have IV access during this emergency room visit. ha1 Administered Medications: No medications were administered Medication: 06:49 VIS not applicable for this client. ha1 Outcome: 05:18 Discharge ordered by . [email or web address] 06:50 Condition: stable ha1 07:06 Discharged to senior living. ha1 07:06 Discharge instructions given to patient, senior living, Instructed on discharge instructions, follow up and referral plans. 07:06 Demonstrated understanding of instructions, follow-up care, medications, 07:07 Patient left the ED. ha1 Signatures: Dispatcher [employer] EDMS Prosper Hensley MD MD sp3 Татьяна Chan [email or web address] Leena Kinney, RN RN ha1
--- NOTE | 2025-05-13 05:19 | EDPHYS ---
Physician Documentation [facility] Name: Dwight Nolasco Age: 80 yrs Sex: Male : 1945 Arrival Date: 05/13/2025 Time: 03:20 Bed 19 Private MD: ED Physician Prosper Hensley HPI: 05/13 03:27 This 80 yrs old Male presents to ER via Unassigned with complaints of Fall Injury. sp3 03:27 80-year-old male with history of hypertension and diabetes, currently on Xarelto sp3 presents to the ED with a mechanical fall while getting out of bed to use the restroom with injuries to the forehead. He denies any other injuries, loss of consciousness, current headache, neck pain, chest pain, shortness of breath, abdominal pain, syncope, near syncope, medical prodromal event prior to the fall, or any other signs or symptoms on ROS at this time.. Historical: - Allergies: 03:35 No Known Allergies; ha1 - Home Meds: 03:35 amiodarone 100 mg Oral tablet 1 tab daily [Active]; amlodipine 10 mg tab 1 tab once ha1 daily [Active]; atorvastatin 80 mg Oral tab 1 tab nightly [Active]; Depakote 125 mg Oral TbEC 2 tabs 3 times per day [Active]; duloxetine 20 mg Oral cpDR daily [Active]; hydrocodone-acetaminophen 5-325 mg Oral tab BID [Active]; Depakote Sprinkles 125 mg Oral cpSP 2 caps every 8 hours [Active]; gabapentin 800 mg Oral tab 1 tab 3 times per day [Active]; lisinopril 20 mg Oral tab 1 tab once daily [Active]; Milk of Magnesia 400 mg/5 mL Oral susp 30 mL every 6hrs PRN for constipation [Active]; glimepiride 1 mg Oral tab once daily [Active]; fenofibrate 54 mg Oral tab once daily [Active]; guaifenesin 100 mg/5 mL Oral liqd evry 8 hrs PRN for cough [Active]; Xarelto oral [Active]; metformin 850 mg Oral tab 1 tab 2 times per day [Active]; glimepiride 2 mg Oral tab 1 tab once daily [Active]; furosemide 40 mg Oral tab once daily [Active]; - PMHx: 03:35 atrial flutter; Cellulitis; cognitive communication deficit; CVA; Dementia; Depression; ha1 DYSPHAGIA; hemiplegia; Hyperlipidemia; Hypertension; osteoarthritis; Type 2 Diabetes; - Immunization history:: Adult Immunizations unknown. - Infectious Disease History:: Denies. - Social history:: Smoking status: unknown. ROS: 03:30 Constitutional: Negative for fever, chills, and weight loss, Eyes: Negative for injury, sp3 pain, redness, and discharge, ENT: Negative for injury, pain, and discharge, Neck: Negative for injury, pain, and swelling, Cardiovascular: Negative for chest pain, palpitations, and edema, Respiratory: Negative for shortness of breath, cough, wheezing, and pleuritic chest pain, Abdomen/GI: Negative for abdominal pain, nausea, vomiting, diarrhea, and constipation, Back: Negative for injury and pain, MS/Extremity: Negative for injury and deformity, Skin: Negative for injury, rash, and discoloration, Psych: Negative for depression, anxiety, suicide ideation, homicidal ideation, and hallucinations, Allergy/Immunology: Negative for hives, rash, and allergies, Endocrine: Negative for neck swelling, polydipsia, polyuria, polyphagia, and marked weight changes, 03:30 All other systems are negative, Exam: 03:30 Constitutional: This is a well developed, well nourished patient who is awake, alert, sp3 and in no acute distress. Eyes: Pupils equal round and reactive to light, extra-ocular motions intact. Lids and lashes normal. Conjunctiva and sclera are non-icteric and not injected. Cornea within normal limits. Periorbital areas with no swelling, redness, or edema. ENT: Nares patent. No nasal discharge, no septal abnormalities noted. External auditory canals are clear. Oropharynx with no redness, swelling, or masses, exudates, or evidence of obstruction, uvula midline. Mucous membranes moist. Neck: Trachea midline, no thyromegaly or masses palpated, and no cervical lymphadenopathy. Supple, full range of motion without nuchal rigidity, or vertebral point tenderness. No Meningismus. Chest/axilla: Normal chest wall appearance and motion. Nontender with no deformity. No lesions are appreciated. Cardiovascular: Regular rate and rhythm with a normal S1 and S2. No gallops, murmurs, or rubs. Normal PMI, no JVD. No pulse deficits. Respiratory: Lungs have equal breath sounds bilaterally, clear to auscultation and percussion. No rales, rhonchi or wheezes noted. No increased work of breathing, no retractions or nasal flaring. Abdomen/GI: Soft, non-tender, with normal bowel sounds. No distension or tympany. No guarding or rebound. No evidence of tenderness throughout. Back: No spinal tenderness. No costovertebral tenderness. Full range of motion. Skin: Warm, dry with normal turgor. Normal color with no rashes, no lesions, and no evidence of cellulitis. MS/ Extremity: Pulses equal, no cyanosis. Neurovascular intact. Full, normal range of motion. Neuro: Awake and alert, GCS 15, oriented to person, place, time, and situation. Cranial nerves II-XII grossly intact. Motor strength 5/5 in all extremities. Sensory grossly intact. Cerebellar exam normal. Normal gait. 03:30 Head/face: Multiple abrasions to the forehead and right temporal region. No repairable lacerations noted.. 03:41 Musculoskeletal/extremity: Further exam demonstrates mild pain on right knee. Patient sp3 states the pain is always there however he did fall so we will x-ray it to ensure no other pathology is present.. Vital Signs: 03:21 BP 120 / 60; Pulse 105; Resp 17 S; Temp 98.9(A); Pulse Ox 95% on R/A; Weight 101.6 kg; ha1 Height 5 ft. 11 in. ; 05:50 BP 117 / 72; Pulse 109; Resp 18; Pulse Ox 95% on R/A; ha1 06:45 BP 125 / 77; Pulse 109; Resp 17 S; Pulse Ox 97% on R/A; ha1 03:21 Body Mass Index 31.24 (101.60 kg, 180.34 cm) ha1 Po Coma Score: 03:21 Eye Response: spontaneous(4). Motor Response: obeys commands(6). Verbal Response: ha1 confused(4). Total: 14. Trauma Score (Adult): 03:21 Eye Response: spontaneous(1); Verbal Response: confused(1); Motor Response: obeys ha1 commands(2); Systolic BP: > 89 mm Hg(4); Respiratory Rate: 10 to 29 per min(4); Po Score: 14; Trauma Score: 12 MDM: 03:22 Medical Screening Exam initiated sp3 03:30 Data reviewed: vital signs, nurses notes, radiologic studies. ED course: 80-year-old sp3 male with mechanical fall with injuries to the head while on Xarelto. Differential diagnosis includes closed head injury, intracranial hemorrhage, or other intracranial pathology. Will obtain CT scan of the head and C-spine and if negative, dress wounds and safely discharge patient home.. 05:17 ED course: All imaging is negative. Will safely discharge patient home at this time.. sp3 05/13 03:23 Order name: CT Head C Spine sp3 05/13 03:41 Order name: Knee Right 2 View XRAY sp3 Administered Medications: No medications were administered Disposition Summary: 05/13/25 05:18 Discharge Ordered Notes: Location: Home sp3 Condition: Stable sp3 Diagnosis - Mechanical fall, closed head injury, forehead abrasion sp3 Followup: sp3 - With: Private Physician - When: Upon discharge from the Emergency Department - Reason: Continuance of care Discharge Instructions: - Discharge Summary Sheet sp3 - Head Injury, Adult sp3 - Fall Prevention in the Home, Adult sp3 Forms: - Medication Reconciliation Form sp3 - Antibiotic Education sp3 - Prescription Opioid Use sp3 - Patient Portal Instructions sp3 - Leadership Thank You Letter sp3 Signatures: Dispatcher [employer] Prosper Otero MD MD sp3 Leena Kinney RN RN ha1 Corrections: (The following items were deleted from the chart) 03:29 03:27 80-year-old male with. sp3 sp3 03:29 03:27 This 80 yrs old Male presents to ER via Unassigned with complaints of Fall sp3 Injury. sp3
--- NOTE | 2025-05-13 06:45 | RAD REPORT ---
CLINICAL HISTORY: TRAUMA COMPARISON: None. TECHNIQUE: CT HEAD AND CERVICAL SPINE WITHOUT CONTRAST on 05/13/2025 3:23 AM CDT This exam was performed according to our departmental dose-optimization program, which includes autom ated exposure control, adjustment of the mA and/or kV according to patient size and/or use of iterative reconstruction technique. FINDINGS: Brain: There is no acute hemorrhage, mass effect or midline shift. There is a large area of encephalo malacia in the anterior left basal ganglia. There is minimal right frontal periventricular encephalomalacia. There is some involvement of the left frontal cortex as well. There is no hydroceph alus. There is mild mostly bifrontal cerebral atrophy. The calvarium is intact. Orbits and globes are unremarkable. The paranasal sinuses are clear. Mastoid air cells are clear. Cervical Spine: There is no acute fracture. There is grade 1 anterolisthesis of C4 on C5. There is mi ld mostly right-sided facet arthritis. There is moderate narrowing of the C4-5 disc with severe narrowing at C5-6 and C6-7. Vertebral body h eights are preserved. Soft tissues are unremarkable. IMPRESSION: No acute findings. Electronically signed by: Jakob Jose MD 05/13/2025 04:35 AM CDT RP Due to temporary technical issues with the PACS/[employer] reporting system, reports are being felisha d by the in-house radiologist without review as a courtesy to ensure prompt reporting the interpreting radiologist is fully responsible for the content of the report. Transcribed Date/Time: 05/13/2025 6:45 AM
[2025-05-13 12:33] VITALS: TEMP 98.9
[2025-05-13 12:50] VITALS: BP 125/77; O2SAT 97
== END 2025-05-13 07:07 | disposition home or self-care (01) ==
LOC: ER 03:20
DX: S00.81XA Abrasion of other part of head, initial encounter (principal); M54.2 Cervicalgia; W06.XXXA Fall from bed, initial encounter; Z79.01 Long term (current) use of anticoagulants
CPT/HCPCS: 70450; 72125; 99283

== ENCOUNTER 2025-07-03 08:19 | Observation (INO) | payer OTHER ==
[2025-07-03 09:16] LABS: Absolute Lymphocytes (CBC) 0.8 K/uL (0.7-4.9); Hematocrit 33.4 % (39.6-49.0); Hemoglobin 10.9 g/dL (13.6-17.9); MCH 26.3 pg (27.0-35.0); MCHC 32.7 g/dL (32.0-36.0); MCV 80.5 fL (80-100); MPV 7.4 fL (7.6-11.3); Nucleated RBC Absolute Count 0.0 (0-0); Nucleated Red Blood Cells % 0.0 % (0-0); RBC Red Blood Cell Count 4.15 M/uL (4.33-5.43); White Blood Count 7.60 thou/uL (4.3-10.9)
[2025-07-03 09:36] LABS: Anion Gap 8.6 mEq/L (5.0-15.0); BUN Blood Urea Nitrogen 20.0 mg/dL (7-18); Glucose Level 128.0 mg/dL (74-106); Potassium 3.6 mEq/L (3.5-5.1); Troponin High Sensitivity 17.6 pg/mL (<58.9)
--- NOTE | 2025-07-03 10:03 | RAD REPORT ---
EXAMINATION: ONE VIEW CHEST XR CLINICAL INDICATION: Male, 80 years old.,hypoglycemia TECHNIQUE: Frontal chest projection is submitted. Examination is limited by patient positioning and t echnique. COMPARISON: 10/07/2021 FINDINGS: Decreased Inspiratory effort limits evaluation. New right basilar pleural-parenchymal opacity. Suspec marge elevation of the right hemidiaphragm as well. No pneumothorax or sizable left effusion. The heart is normal in size. Mediastinal contours are unremarkable. IMPRESSION: New right basilar pleural-parenchymal opacity could indicate underlying pneumonia.
[2025-07-03 10:45] LABS: PT Prothrombin Time 26.9 SECONDS (10-13.0); PTT, Activated Partial Thromb 46.1 SECONDS (27.2-37.4); Protime INR 2.44
[2025-07-03 10:54] LABS: ALT/SGPT 22.0 U/L (16-61); AST/SGOT 23.0 U/L (15-37); Albumin 2.7 g/dL (3.4-5.0); Albumin/Globulin Ratio 0.6 (1.1-1.8); Alkaline Phosphatase 190.0 U/L (45-117); Anion Gap 6.8 mEq/L (5.0-15.0); BUN Blood Urea Nitrogen 19.0 mg/dL (7-18); Globulin 4.9 g/dL (2.3-3.5); Potassium 3.8 mEq/L (3.5-5.1)
[2025-07-03 10:56] LABS: Glucose Level 52.0 mg/dL (74-106)
[2025-07-03] MEDS ORDERED: D50W 25 GM/50 ML SYRINGE IV ONE (10:58)
[2025-07-03] MEDS ORDERED: MORPHINE 2 MG/ML SYR IV PRN (11:17)
--- NOTE | 2025-07-03 11:23 | ER ---
Nurse's Notes [facility] Name: Dwight Nolasco Age: 80 yrs Sex: Male : 1945 Arrival Date: 07/03/2025 Time: 08:19 Bed 17 Private MD: Diagnosis: Hypoglycemia, unspecified;Other pneumonia, unspecified organism Presentation: 07/03 08:25 Chief complaint: EMS states: Pt brought in from [place] due to AMS noted at 6 am this jp5 morning during rounds. Upon EMS arrival pt had a BG of 25, upon arriving to ER pt BG 133 per EMS. Coronavirus screen: Client denies travel out of the [place] in the last 14 days. At this time, the client does not indicate any symptoms associated with coronavirus-19. Ebola Screen: No symptoms or risks identified at this time. Initial Sepsis Screen: Does the patient meet any 2 criteria? Altered Mental Status. HR > 90 bpm. Yes Does the patient have a suspected source of infection? No. Patient's initial sepsis screen is negative. Risk Assessment: Do you want to hurt yourself or someone else? Unable to obtain. Onset of symptoms was July 03, 2025. 08:25 Method Of Arrival: EMS: [facility] 5 08:25 Acuity: BEVERLY 2 jp5 Triage Assessment: 08:25 General: Appears comfortable, unkempt, Behavior is drowsy. Pain: Unable to use pain jp5 scale. Patient is disoriented. Neuro: Level of Consciousness is lethargic, Oriented to SAPNA, pt will not answer questions. Historical: - Allergies: 08:25 No Known Allergies; jp5 - PMHx: 08:25 atrial flutter; Type 2 Diabetes; Hypertension; Hyperlipidemia; hemiplegia; DYSPHAGIA; jp5 Cellulitis; cognitive communication deficit; CVA; Dementia; Depression; osteoarthritis; - Immunization history:: Adult Immunizations up to date. - Infectious Disease History:: Denies. - Social history:: Smoking status: Patient reports the use of cigarette tobacco products, cigars. Screenin:25 [facility] ED Fall Risk Assessment (Adult) History of falling in the last 3 months, jp5 including since admission Confusion or Disorientation Yes (5 pts) Intoxicated or Sedated No (0 pts) Impaired Gait Yes (1 pt) Mobility Assist Device Used Yes (1 pt) Altered Elimination Yes (1 pt) Score/Fall Risk Level 3 or more points = High Risk Oriented to surroundings, Maintained a safe environment, Educated pt \T\ family on fall prevention, incl call for assistance when getting out of bed, Assessed \T\ reinforced patient's understanding of fall precautions, Provided non-skid footwear, Hourly rounding (assess needs \T\ fall precautionary measures) done, Used ambulatory aids as needed (educated on \T\ assisted with), Used gait belt as appropriate Implemented a Fall Risk Plan of Care, Apply high fall risk patient identification: yellow non skid footwear/ fall signage, Remained w/in arm's length of patient and in sight while toileting, Offered frequent toileting (1:1 observation), Remained with patient while ambulating, Utilized family, sitter, or virtual gi asst as indicated. Abuse screen: Denies threats or abuse. Denies injuries from another. Nutritional screening: No deficits noted. Tuberculosis screening: No symptoms or risk factors identified. Assessment: 08:25 General: VIEW TRIAGE. [facility] 09:19 Reassessment: Patient appears in no apparent distress at this time. No changes from [facility] previously documented assessment. 10:00 Reassessment: Patient appears in no apparent distress at this time. No changes from 5 previously documented assessment. 11:00 Reassessment: Patient appears in no apparent distress at this time. Patient states jp5 symptoms have improved. PT IS MORE AWAKE NOW BUT STILL CONFUSED. . 12:00 Reassessment: Patient appears in no apparent distress at this time. No changes from [facility] previously documented assessment. Patient and/or family updated on plan of care and expected duration. Pain level reassessed. Vital Signs: 08:25 BP 113 / 79; Pulse 105; Resp 17; Temp 97.7(O); Pulse Ox 95% on R/A; jp5 09:00 BP 114 / 78; Pulse 102; Resp 16; Pulse Ox 99% on R/A; jp5 10:00 BP 105 / 73; Pulse 101; Resp 18; Pulse Ox 97% on R/A; jp5 12:00 BP 128 / 80; Pulse 106; Resp 18; Temp 98(O); Pulse Ox 96% on R/A; jp5 13:00 BP 126 / 78; Pulse 64; Resp 18; Temp 97.8(O); Pulse Ox 99% on R/A; jp5 14:00 BP 125 / 73; Pulse 85; Resp 16; Pulse Ox 99% on R/A; jp5 ED Course: 08:25 Arm band placed on left wrist. jp5 08:25 Bed in low position. Call light in reach. Side rails up X 1. Provided Education on: jp5 CALL LIGHT USE. 08:25 hob machine operator on. Pulse ox on. NIBP on. Warm blanket given. jp5 08:26 Patient arrived in ED. iw 08:27 Matthew Gomez DO is Attending Physician. ms3 08:33 Camila Clark, RN is Primary Nurse. jp5 08:37 Triage completed. jp5 08:40 Maintain EMS IV. Dressing intact. Good blood return noted. Site clean \T\ dry. Gauge \T\ jenny 5 site: 20G LAC. Flushed with 10 mL NS. 08:41 Basic Metabolic Panel Sent. jp5 08:41 CBC with Diff Sent. jp5 08:41 Troponin HS Sent. jp5 08:42 BG 89. jp5 09:17 No provider procedures requiring assistance completed. jp5 09:52 XRAY Chest (1 view) In Process Unspecified. EDMS 10:10 First set of blood cultures drawn by me. jp5 10:21 Second set of blood cultures drawn. jp5 10:35 Blood Culture Adult (2) Sent. jp5 10:35 CMP Sent. jp5 10:35 Lactate w/ 2H reflex if indic. Sent. jp5 10:35 Protime (+inr) Sent. jp5 10:35 Ptt, Activated Sent. jp5 11:22 Jeanne Gaytan MD is Hospitalizing Provider. ms3 11:30 CALLED PHARMACY TO REQUEST D5W NS FLUIDS. jp5 13:40 BGL 107. jp5 13:45 Report given to All required paperwork faxed and tubed to 2nd floor. Ernst DENNIS confirmed jp5 received. 14:00 Cleaned of incontinence. Linen changed. Gown placed. jp5 14:15 Patient admitted, IV remains in place. jp5 Administered Medications: 11:00 Drug: D50W IVP 50 ml IVP once; (1 amp) Route: IVP; Site: left antecubital; jp5 11:31 Drug: Rocephin IV 1 grams IV at calculated rate once; Given slow IV push per pharmacy jp5 instructions Route: IV; Rate: calculated rate; Site: left antecubital; 11:59 Follow up: IV Status: Completed infusion; IV Intake: 50ml jp5 12:17 Drug: AZITHromycin IVPB 500 mg IVPB once over 1 hrs; (mix in 250 mL NS) Route: IVPB; jp5 Infused Over: 1 hrs; Site: left antecubital; Medication: 09:18 VIS not applicable for this client. jp5 Intake: 11:59 IV: 50ml; Total: 50ml. jp5 Outcome: 11:22 Decision to Hospitalize by Provider. ms3 14:15 Admitted to Med/surg accompanied by tech, via stretcher, with chart, jp5 14:15 Condition: stable 14:15 Instructed on the need for admit, 14:40 Patient left the ED. jp5 Signatures: Dispatcher [employer] EDShwetha Madsen RN RN iw Sims, Marcus, DO ms3 Camila Clark RN RN jp5 Corrections: (The following items were deleted from the chart) 12:39 09:19 Reassessment: Patient appears in no apparent distress at this time. No changes jp5 from previously documented assessment. Patient and/or family updated on plan of care and expected duration. Pain level reassessed. Patient is alert, oriented x 3, equal unlabored respirations, skin warm/dry/pink. jp5
--- NOTE | 2025-07-03 11:23 | EDPHYS ---
Physician Documentation [facility] Name: Dwight Nolasco Age: 80 yrs Sex: Male : 1945 Arrival Date: 07/03/2025 Time: 08:19 Bed 17 Private MD: ED Physician Matthew Gomez HPI: 07/03 13:26 This 80 yrs old Male presents to ER via EMS with complaints of Altered Mental Status. ms3 13:26 80-year-old male past medical history of atrial flutter, type 2 diabetes, hypertension, ms3 hyperlipidemia, hemiplegia, dysphagia presents to the emergency department via [facility] for blood glucose level of 25. Patient with irregular respirations on arrival, heart rate 110, blood pressure 124/73. EMS administered 250 mL of D10 with improvement patient's blood glucose level to 139. Patient currently takes insulin glargine 25 units every night. Historical: - Allergies: 08:25 No Known Allergies; jp5 - PMHx: 08:25 atrial flutter; Type 2 Diabetes; Hypertension; Hyperlipidemia; hemiplegia; DYSPHAGIA; jp5 Cellulitis; cognitive communication deficit; CVA; Dementia; Depression; osteoarthritis; - Immunization history:: Adult Immunizations up to date. - Infectious Disease History:: Denies. - Social history:: Smoking status: Patient reports the use of cigarette tobacco products, cigars. ROS: 13:26 Constitutional: Negative for fever, and chills. Cardiovascular: Negative for chest ms3 pain, and palpitations. Respiratory: Negative for shortness of breath, cough, wheezing, and pleuritic chest pain, Abdomen/GI: Negative for abdominal pain, nausea, vomiting, diarrhea, and constipation, Exam: 13:26 Constitutional: This is a well developed, well nourished patient who is awake, alert, ms3 and in no acute distress. Cardiovascular: Regular rate and rhythm with a normal S1 and S2. No gallops, murmurs, or rubs. Normal PMI, no JVD. No pulse deficits. Respiratory: Lungs have equal breath sounds bilaterally, clear to auscultation and percussion. No rales, rhonchi or wheezes noted. No increased work of breathing, no retractions or nasal flaring. Abdomen/GI: Soft, non-tender, with normal bowel sounds. No distension or tympany. No guarding or rebound. No evidence of tenderness throughout. Skin: Warm, dry with normal turgor. Normal color with no rashes, no lesions, and no evidence of cellulitis. MS/ Extremity: Pulses equal, no cyanosis. Decreased ROM of RUE 17:10 ECG was reviewed by the Attending Physician. ms3 Vital Signs: 08:25 BP 113 / 79; Pulse 105; Resp 17; Temp 97.7(O); Pulse Ox 95% on R/A; jp5 09:00 BP 114 / 78; Pulse 102; Resp 16; Pulse Ox 99% on R/A; jp5 10:00 BP 105 / 73; Pulse 101; Resp 18; Pulse Ox 97% on R/A; jp5 12:00 BP 128 / 80; Pulse 106; Resp 18; Temp 98(O); Pulse Ox 96% on R/A; jp5 13:00 BP 126 / 78; Pulse 64; Resp 18; Temp 97.8(O); Pulse Ox 99% on R/A; jp5 14:00 BP 125 / 73; Pulse 85; Resp 16; Pulse Ox 99% on R/A; jp5 MDM: 08:27 Medical Screening Exam initiated ms3 13:34 Differential Diagnosis: electrolyte abnormality, hypoglycemia, volume depletion. Data ms3 reviewed: vital signs, nurses notes, lab test result(s), EKG, radiologic studies, and as a result, I will admit patient. Consideration of Admission/Observation Patient was admitted/placed on observation. Management of patient was discussed with the following: Hospitalist: Dr Gaytan. I considered the following discharge prescriptions or medication management in the emergency department Medications were administered in the Emergency Department. See MAR. Independent interpretation of the following test(s) in the Emergency Department EKG: See my EKG interpretation above X-Ray: My interpretation is CXR images reviewed by me shows right basilar consolidation. Counseling: I had a detailed discussion with the patient and/or guardian regarding the historical points, exam findings, and any diagnostic results supporting the discharge/admit diagnosis, lab results, radiology results, the need for further work-up and treatment in the hospital. ED course: Discussed case with Dr. Gaytan and he accepts patient for admission. 07/03 08:28 Order name: Basic Metabolic Panel; Complete Time: 10:07 ms3 07/03 08:28 Order name: CBC with Diff; Complete Time: 10:07 ms3 07/03 08:28 Order name: Troponin HS; Complete Time: 10:07 ms3 07/03 08:44 Order name: Glucose, Ancillary Testing; Complete Time: 08:45 EDMS 07/03 10:08 Order name: Blood Culture Adult (2) ms3 07/03 10:08 Order name: CMP; Complete Time: 11:05 ms3 07/03 10:08 Order name: Lactate w/ 2H reflex if indic.; Complete Time: 11:05 ms3 07/03 10:08 Order name: Protime (+inr); Complete Time: 11:05 ms3 07/03 10:08 Order name: Ptt, Activated; Complete Time: 11:05 ms3 07/03 11:22 Order name: CBC with Automated Diff EDMS 07/03 11:22 Order name: CBC with Automated Diff EDMS 07/03 11:22 Order name: Comprehensive Metabolic Panel EDMS 07/03 11:22 Order name: Comprehensive Metabolic Panel EDMS 07/03 11:22 Order name: Hemoglobin A1c EDMS 07/03 11:22 Order name: Hemoglobin A1c EDMS 07/03 11:22 Order name: Lipid Profile EDMS 07/03 11:22 Order name: Lipid Profile EDMS 07/03 11:33 Order name: Glucose, Ancillary Testing EDMS 07/03 12:50 Order name: Glucose, Ancillary Testing EDMS 07/03 08:28 Order name: XRAY Chest (1 view); Complete Time: 10:07 ms3 07/03 08:28 Order name: EKG; Complete Time: 08:29 ms3 07/03 08:28 Order name: Cardiac monitoring; Complete Time: 08:41 ms3 07/03 08:28 Order name: EKG - Nurse/Tech; Complete Time: 09:16 ms3 07/03 08:28 Order name: IV Saline Lock; Complete Time: 08:41 ms3 07/03 08:28 Order name: Labs collected and sent; Complete Time: 08:41 ms3 07/03 08:28 Order name: O2 Per Protocol; Complete Time: 08:41 ms3 07/03 08:28 Order name: O2 Sat Monitoring; Complete Time: 08:41 ms3 07/03 10:08 Order name: Accucheck; Complete Time: 10:35 ms3 07/03 10:08 Order name: IV Saline Lock - Large Bore; Complete Time: 10:35 ms3 07/03 10:08 Order name: Vital Signs; Complete Time: 10:35 ms3 07/03 11:04 Order name: PO challenge; Complete Time: 12:38 ms3 EC:10 Rate is 115 beats/min. Rhythm is regular. Left axis deviation noted. ME interval is ms3 normal. QRS interval is normal. Clinical impression: NSR w/ Non-specific ST/T Changes. Interpreted by me. Reviewed by me. Administered Medications: 11:00 Drug: D50W IVP 50 ml IVP once; (1 amp) Route: IVP; Site: left antecubital; jp5 11:31 Drug: Rocephin IV 1 grams IV at calculated rate once; Given slow IV push per pharmacy jp5 instructions Route: IV; Rate: calculated rate; Site: left antecubital; 11:59 Follow up: IV Status: Completed infusion; IV Intake: 50ml jp5 12:17 Drug: AZITHromycin IVPB 500 mg IVPB once over 1 hrs; (mix in 250 mL NS) Route: IVPB; jp5 Infused Over: 1 hrs; Site: left antecubital; Disposition: 13:35 Critical Care:. ms3 Disposition Summary: 07/03/25 11:22 Hospitalization Ordered Notes: Hospitalization Status: Inpatient Admission ms3 Provider: Jeanne Gaytan ms3 [facility] ms3 Condition: Stable ms3 Problem: new ms3 Symptoms: are unchanged ms3 Bed/Room Type: Standard ms3 Room Assignment: 205(07/03/25 13:17) bd Diagnosis - Hypoglycemia, unspecified ms3 - Other pneumonia, unspecified organism ms3 Forms: - Medication Reconciliation Form ms3 - SBAR form ms3 - Leadership Thank You Letter ms3 Critical care time excluding procedures: 13:35 Critical care time: Bedside Care: 35 minutes, Consultation: 5 minutes. Total time: 40 ms3 minutes Signatures: Dispatcher [employer] Gretta Sandoval Marcus, DO DO ms3 Camila Clark, RN RN jp5 Corrections: (The following items were deleted from the chart) 13:17 11:22 ms3 bd
[2025-07-03] MEDS ORDERED: CEFTRIAXONE 1000 MG/VIAL ONE (11:27)
[2025-07-03] MEDS ORDERED: AZITHROMYCIN 500 MG INJ IVPB ONE (11:27)
[2025-07-03] MEDS ORDERED: NA CHLORIDE 0.9% 250 ML ONE (11:27)
[2025-07-03] MEDS ORDERED: NA CHLORIDE 0.9% 50 ML ONE (11:28)
[2025-07-03] MEDS: D5 0.9 NS 1,000 ML IV SCH ×2 (11:30→22:52)
[2025-07-03] MEDS ORDERED: D5 0.9 NS 1,000 ML IV SCH (12:00)
[2025-07-03 17:03] VITALS: BMI 28.8
[2025-07-03] MEDS: DIVALPROEX NA 125 MG CAP PO SCH (20:24)
[2025-07-03] MEDS: GABAPENTIN 400 MG CAP PO SCH (20:24)
[2025-07-03] MEDS: HYDROCODONE/APAP 5/325 MG TAB PO SCH (20:24)
[2025-07-03] MEDS ORDERED: HOME MED 1 EA UNK (Gabapentin [Neurontin] 800 MG Tablet) PO SCH (21:00)
[2025-07-03 22:15] VITALS: O2SAT 94
[2025-07-04 07:58] LABS: Absolute Lymphocytes (CBC) 1.3 K/uL (0.7-4.9); Hematocrit 33.2 % (39.6-49.0); Hemoglobin 10.9 g/dL (13.6-17.9); MCH 26.1 pg (27.0-35.0); MCHC 33.0 g/dL (32.0-36.0); MCV 79.2 fL (80-100); MPV 7.2 fL (7.6-11.3); Nucleated RBC Absolute Count 0.0 (0-0); Nucleated Red Blood Cells % 0.0 % (0-0); RBC Red Blood Cell Count 4.19 M/uL (4.33-5.43); White Blood Count 7.00 thou/uL (4.3-10.9)
[2025-07-04 08:21] LABS: ALT/SGPT 20.0 U/L (16-61); AST/SGOT 19.0 U/L (15-37); Albumin 2.3 g/dL (3.4-5.0); Alkaline Phosphatase 168.0 U/L (45-117); Anion Gap 7.8 mEq/L (5.0-15.0); BUN Blood Urea Nitrogen 16.0 mg/dL (7-18); Glucose Level 155.0 mg/dL (74-106); Potassium 3.8 mEq/L (3.5-5.1)
[2025-07-04 08:22] LABS: Albumin/Globulin Ratio 0.5 (1.1-1.8); Globulin 4.3 g/dL (2.3-3.5); HDL Cholesterol 44.0 mg/dL (40-60); LDL Cholesterol, Calculated 41.0 mg/dL (<130); LDL Cholesterol,Calc NonReport 41.0
[2025-07-04] MEDS: FENOFIBRATE 54 MG PO SCH (09:00)
[2025-07-04] MEDS: DULOXETINE 20 MG CAP PO SCH (09:46)
[2025-07-04] MEDS: LIDOCAINE 4% PATCH TD SCH (09:46)
--- NOTE | 2025-07-04 10:27 | P.HP ---
Certification for Inpatient Patient admitted to: Observation With expected LOS: <2 Midnights Practitioner: I am a practitioner with admitting privileges, knowledge of patient current condition, hospital course, and medical plan of care. Services: Services provided to patient in accordance with Admission requirements found in Title 42 Section 412.3 of the Code of Federal Regulations Patient History Date of Service: 07/03/25 Reason for admission: Hypoglycemia History of Present Illness: Patient is a 80-year-old gentleman who came to the hospital with hypoglycemic episode. Patient lives at [facility]. He has been there for quite a while after a stroke. Patient is on Lantus and glimepiride. However, his A1c level was 5.9. Will need to lower his dose of Lantus to 8 to 10 units. He will need to stop his Amaryl. Currently patient is doing better and he is awake alert and eating. He is not having a lot of difficulty. Will admit for observation. Otherwise continue with supportive care as he had a stroke. Transfer to a wheelchair as needed. He should be able to go back to [facility] as asked where he lives. Allergies No Known Allergies Allergy (Verified 11/07/14 20:31) Home Medications: Hydrocodone Bit/Acetaminophen [Hydrocodon-Acetaminophen 5-325] 1 tab PO BID 07/23/14 Fenofibrate [Lofibra] 54 mg PO DAILY 11/07/14 Furosemide [Lasix] 40 mg PO DAILY 07/04/19 Divalproex [Depakote Sprinkle*] 125 mg PO BID 08/28/20 Duloxetine HCl 20 mg PO DAILY 08/28/20 Gabapentin [Neurontin] 800 mg PO TID 08/28/20 Magnesium Hydroxide [Milk of Magnesia] 30 ml PO Q6HP PRN 08/28/20 Multivitamin [Daily Multiple Vitamin] 1 tab PO DAILY 08/28/20 Nitroglycerin [Nitrostat*] 1 tab SL SEECOM 08/28/20 lisinopriL [Prinivil*] 20 mg PO DAILY 11/04/20 Lidocaine 4% Patch [Lidoderm 5% Patch*] 1 patch TD DAILY 07/03/25 Insulin Glargine,Hum.rec.anlog [Insulin Glargine Solostar] 15 unit SQ 30 MIN BEFORE HS #2 syr 07/04/25 - Past Medical/Surgical History Diabetic: Yes -: HTN -: CVA -: Dementia -: neuropathy -: aflutter -: osteoarthritis -: type 2 dm -: hyperlipidemia -: depression -: covid -: hemiplegia rue - Family History Father Family History: Reviewed- Non-Contributory - Social History Smoking Status: Unknown if ever smoked Alcohol use: No CD- Drugs: No Caffeine use: Yes Place of Residence: Care Home Review of Systems 10-point ROS is otherwise unremarkable Physical Examination - Vital Signs Temperature: 98.0 F Blood Pressure: 131/75 Pulse: 105 Respirations: 16 Pulse Ox (%): 92 - Physical Exam General: Alert, In no apparent distress, Oriented x3 HEENT: Atraumatic, PERRLA, Mucous membr. moist/pink, EOMI, Sclerae nonicteric Neck: Supple, 2+ carotid pulse no bruit, No LAD, Without JVD or thyroid abnormality Respiratory: Clear to auscultation bilaterally, Normal air movement Cardiovascular: Regular rate/rhythm, Normal S1 S2, No murmurs Gastrointestinal: Normal bowel sounds, Soft and benign, Non-distended, No tenderness Musculoskeletal: No clubbing, No swelling, No tenderness Integumentary: No rashes Neurological: Sensation intact, Cranial nerves 3-12 intact, Normal affect, Abnormal gait, Abnormal speech, Abnormal strength, Abnormal tone (Patient with contractures status post stroke) Lymphatics: No axilla or inguinal lymphadenopathy - Studies Laboratory Data (last 24 hrs) 07/03/25 07/03/25 10:22 10:22 PT 26.9 H INR 2.44 APTT 46.1 H Sodium 140 Potassium 3.8 BUN 19 H Creatinine 1.18 Glucose 52 L* Total Bilirubin 0.4 AST 23 ALT 22 Alkaline Phosphatase 190 H Assessment & Plan - Problems (Diagnosis) (1) Hypoglycemia Current Visit: No Status: Acute (2) Diabetes mellitus Onset Date: 11/11/14 Current Visit: No Status: Acute Qualifiers: Laterality: right (3) CVA (cerebral vascular accident) Current Visit: No Status: Chronic Qualifiers: (4) HLD (hyperlipidemia) Current Visit: No Status: Chronic Qualifiers: (5) HTN (hypertension) Current Visit: No Status: Chronic Qualifiers: (6) Vascular dementia Current Visit: No Status: Chronic Qualifiers: Dementia 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 Hypoglycemic patient A1c level is low. Will go ahead and decrease Lantus dosing and DC his glimepiride. Patient will have his blood sugar monitor in the next 24 hours. Will continue with diet. If he does well anticipate discharge home. 2. History of CVA; continue with supportive care and antiplatelet therapy and strict blood pressure control 3. Metabolic syndrome; continue with monitoring his lipid profile and check thyroid studies as an outpatient. This can be monitored by his halfway physician 4. GI DVT prophylaxis Discharge Plan: Home Plan to discharge in: Greater than 2 days - Advance Directives Does patient have a Living Will: No Does patient have a Durable POA for Healthcare: No - Code Status/Comfort Care Code Status Assessed: Yes Code Status: Full Code Critical Care: No Time Spent Managing PTS Care (In Minutes): 45
[2025-07-04] MEDS ORDERED: MORPHINE 4 MG/ML SYR IV PRN (10:54)
[2025-07-04 11:58] VITALS: BP 114/55; TEMP 98.2
== END 2025-07-04 13:38 ==
LOC: ER 08:19 → INTOOBSV 11:17 → ERHOLD 11:17 → 2ND 14:04
PROVIDERS: ADMIT Hospitalist; ATTEND Hospitalist
DX: E11.649 Type 2 diabetes mellitus with hypoglycemia without coma (principal); Z86.73 Personal history of transient ischemic attack (TIA), and cerebral infarction without residual deficits; E78.5 Hyperlipidemia, unspecified; I10 Essential (primary) hypertension; F03.90 Unspecified dementia, unspecified severity, without behavioral disturbance, psychotic disturbance, mood disturbance, and anxiety
CPT/HCPCS: 96365; 93005; 87040 ×2; 85025 ×2; 80048; 36415; 85610; 80061; 82947 ×9; 83605; 85730; 83036; 84484; 80053 ×2; 71045; 96375; 99285; J0456; J2003; J7042 ×3; J7050; J0696; G0378